=== PATIENT | male | born 1970 | race African-American/Black ===

== ENCOUNTER 2024-11-19 09:16 | Inpatient (IN) | payer OTHER, SELFPAY ==
[2024-11-19] VITALS (8 sets, daily range): BP systolic 165–191; BP diastolic 60–110; PULSE 68–84; RESP 14–19; TEMP 36.4–36.8; O2SAT 99–100; BMI 25.7
--- NOTE | ~2024-11-19 | US_ITS ---
EXAMINATION: US TRIPLEX LOWER EXTREMITY, BILATERAL CLINICAL INFORMATION: Bilateral lower extremity edema and pain COMPARISON: None available. TECHNIQUE: Color-flow triplex imaging with spectral analysis and compression Doppler were performed on the bilateral lower extremities. FINDINGS: Respiratory variation, normal compression and augmented flow are noted throughout the bilateral lower extremities. The visualized common femoral vein, superficial femoral vein, profunda femoral vein, popliteal vein and midcalf left peroneal and posterior tibial venous segments show no evidence of deep venous thrombosis bilaterally. Right peroneal vein is not demonstrated. US/US venous duplex LE BI IMPRESSION: No evidence of deep venous thrombosis involving the bilateral lower extremities. Electronically signed by: Bay Duran MD 11/19/2024 01:24 PM EDT
--- NOTE | ~2024-11-19 | XR_ITS ---
EXAMINATION: XR CHEST CLINICAL INFORMATION: elevated bnp, fatigue COMPARISON: None available. TECHNIQUE: 2 views of the chest were obtained. FINDINGS: No significant abnormality is noted involving the heart, lungs, mediastinum, bony thorax or soft tissues. XR/XR chest 2V IMPRESSION: No acute disease Electronically signed by: Bay Duran MD 11/19/2024 12:58 PM EDT RP
--- NOTE | ~2024-11-19 | US_ITS ---
CLINICAL HISTORY: kidneys and bladder for CKD US kidneys and bladder Comparison: None provided Findings: Right kidney 12.2 cm length. No significant focal abnormality. Left kidney 13.9 cm length. No significant focal abnormality. 4.1 cm upper pole cyst. No bilateral hydronephrosis. Normal bilateral renal echogenicity. Trace ascites in left upper quadrant. The urinary bladder is unremarkable. Prevoid volume 124 mL. Post void volume 25 mL. Bilateral ureteral jets visualized. Impression: Trace left upper quadrant ascites Postvoid residual volume 25 mL No significant renal abnormalities This document has been electronically signed by: Jeison Horner MD on 11/19/2024 22:23:01
--- NOTE | 2024-11-19 09:29 | ED.GENADULT ---
HPI - General Adult General Chief complaint: General Medical Stated complaint: Vomiting 3 weeks Time Seen by Provider: 11/19/24 09:29 Source: patient, RN notes reviewed and old records reviewed Mode of arrival: ambulatory Limitations: no limitations History of Present Illness ED Provider: Flor RAMIREZ narrative: Patient is a 54-year-old male with history of T2DM, HIV, HLD has been off of his medications for the past 4 months due to insurance issue presenting with complaint of fatigue/weakness, leg swelling for the past 3 weeks. Also reports nausea and dry heaving at work yesterday. States that he has been out of all his medications for the past 4 months due to insurance issues. Reports pain behind right knee but denies calf pain. Denies chest or abdominal pain, palpitations, dyspnea. Denies fevers. MD complaint: fatigue, leg swelling Onset (ago): week(s) Related Data Home Medications ?Medication ?Instructions ?Recorded ?Confirmed aspirin 81 mg tablet,delayed 81 mg PO DAILY 11/19/24 release atorvastatin 40 mg tablet 40 mg PO DAILY 11/19/24 brimonidine 0.2 % eye drops drp ophthalmic (eye) 11/19/24 dolutegravir 50 mg-lamivudine 300 1 tab PO DAILY 11/19/24 mg tablet (Dovato) empagliflozin 25 mg tablet 25 mg PO DAILY 11/19/24 (Jardiance) olmesartan 5 mg tablet 5 mg PO DAILY 11/19/24 omeprazole 20 mg capsule,delayed 20 mg PO DAILY 11/19/24 release semaglutide 0.25 mg or 0.5 mg (2 mg subcut 11/19/24 mg/3 mL) subcutaneous pen injector (Ozempic) timolol maleate 0.5 % eye drops drp ophthalmic (eye) 11/19/24 Allergies Allergy/AdvReac Type Severity Reaction Status Date / Time sulfamethoxazole (From Allergy Hives Verified 11/19/24 09:43 Bactrim) trimethoprim (From Bactrim) Allergy Hives Verified 11/19/24 09:43 Review of Systems Review of Systems: As per HPI Yes all other systems are reviewed and are negative Constitutional: Constitutional: Reports as per HPI PMFSH Social History Social History Smoked in Last 30 Days: No Use of substances other than those prescribed or required for medical reasons: Yes Substance Use Type: Marijuana Advance Directives: No Advance Directives Information Provided: No Physical Exam ED Vital Signs: Vital Signs - 24 hr 11/19/24 09:41 11/19/24 10:16 11/19/24 11:02 Temperature 98 F 97.9 F Pulse Rate 84 72 Respiratory Rate 18 19 Blood Pressure 191/108 H 175/98 H 165/99 H Pulse Oximetry 99 99 Oxygen Delivery Method Room Air Room Air BMI result Body Mass Index 25.7 Vital signs have been reviewed and appear to be correct. Blood pressure elevated. Heart rate normal. Respiratory rate normal. Temperature normal. Oxygen saturation normal. Const General: cooperative and no acute distress Orientation/consciousness: oriented to person, oriented to place, oriented to time and patient oriented x3 Limitations: no limitations HENMT Head: Yes normocephalic and Yes atraumatic Ears: external ears normal General nose exam: Normal external nose present Face and sinus: Yes face symmetric Mouth: oropharynx normal and moist mucous membranes Throat: Yes uvula midline Eyes Pupils: Equal, round and reactive pupils present Neck Neck: Yes normal visual inspection and Yes supple Resp Effort & Inspection: normal respiratory effort and able to speak in complete sentences Auscultation: clear to auscultation bilaterally Cardio Rate: regular rate Rhythm: regular rhythm Heart sounds: S1 normal heart sound present and S2 normal heart sound present GI Palpation (GI): Soft to palpation and nontender Auscultation: normoactive bowel sounds General: Yes no CVA tenderness Back/Spine/Pelvis Back: no CVA tenderness Skin General skin exam: elasticity normal and turgor normal Neuro General: oriented to person, oriented to place, oriented to time, patient oriented x3, moves all extremities, no focal motor deficits and CN's II-XI intact bilaterally Cranial nerves: Yes Equal, round and reactive pupils present Cognition (Neuro): normal cognition Extrem General: Yes full ROM, Yes no calf tenderness and Yes pedal edema (3+ pitting pedal edema) Right lower extremity: knee Details: tenderness Location: of the popliteal fossa and normal ROM and foot Details: vascular exam Details: dorsalis pedis pulse present, posterior tibial pulse present and normal capillary refill Left lower extremity: foot Details: vascular exam Details: dorsalis pedis pulse present, posterior tibial pulse present and normal capillary refill Psych Mental Status: mental status grossly normal Affect: normal affect Thought process: Normal thought process present Medications Administered Generic Name Dose Route Start Last Admin Trade Name Freq PRN Reason Stop Dose Admin Heparin Sodium (Porcine) 5,000 unit 11/19/24 13:15 11/19/24 13:32 Heparin Sodium,Porcine 5,000 Unit/Ml Vial SUBCUT Not Given Q12H HENRY Discontinued Medications Generic Name Dose Route Start Last Admin Trade Name Lis PRN Reason Stop Dose Admin Furosemide 20 mg 11/19/24 10:53 11/19/24 11:02 Furosemide 20 Mg/2 Ml Vial IVPUSH 11/19/24 10:54 20 mg ONCE ONE Administration Protocol Acetaminophen 1,000 mg in 100 mls @ 400 mls/hr 11/19/24 11:08 11/19/24 12:29 Ofirmev IV 11/19/24 11:22 Infused ONCE ONE Infusion Medical Decision Making Medical Decision Making [facility] Narrative: Patient is a 54-year-old male with history of T2DM, HIV, HLD has been off of his medications for the past 4 months due to insurance issue presenting with complaint of fatigue/weakness, leg swelling for the past 3 weeks. On exam patient is awake, A+Ox3, VS WNL, afebrile, normal neurological exam without focal deficits, physical exam findings as above. Given reported symptoms and physical exam findings, initial differential includes but is not limited to viral illness, electrolyte abnormality, ALINA, dependent edema. Labs notable for elevated BUN/cr, elevated BNP. Chest x-ray without evidence of pulmonary edema, pneumonia. Bilateral lower extremity ultrasound without evidence of DVT. My interpretation is in agreement with the radiologist's interpretation. Will admit patient for lower extremity edema, elevated BNP. Differential Diagnosis Differential Diagnoses: The differential diagnosis associated with the presentation includes as per [facility] Admission/Observation Consideration of admission/observation: Escalation of care including admission/observation considered Consult Healthcare Provider Management of the patient was discussed with: Hospitalist Lab Data [facility] Lab Attestation statement: I reviewed the patient's lab results. as per [facility] 11/19/24 10:04 11/19/24 10:04 Labs: Lab Results 11/19/24 11/19/24 11/19/24 Range/Units 10:04 10:09 10:20 WBC 10.6 (4.8-10.8) X10*3/uL RBC 3.67 L (4.60-5.80) X10*6/uL Hgb 11.2 L (14.0-18.0) g/dl Hct 33.0 L (42.0-52.0) % MCV 89.9 (80.0-98.0) fL MCH 30.5 (27.0-33.0) pg MCHC 33.9 (31.0-36.0) g/dl RDW 13.8 (11.0-16.0) % Plt Count 198 (160-400) X10*3/uL MPV 11.3 (9.4-12.4) fL Immature Gran % (Auto) 0.7 H (0.0-0.4) % Neut % (Auto) 71.4 (45-73) % Lymph % (Auto) 21.6 (20-40) % Aurora % (Auto) 5.4 (2-11) % Eos % (Auto) 0.7 (0-4) % Baso % (Auto) 0.2 (0-2) % Lymph # (Auto) 2.3 (1.2-4.9) X10*3/uL Aurora # (Auto) 0.6 (0.1-1.2) X10*3/uL Eos # (Auto) 0.1 (0.0-0.4) X10*3/uL Baso # (Auto) 0.0 (0.0-0.2) X10*3/uL Abs Immat Gran (auto) 0.07 H (0.00-0.03) X10*3/uL Absolute Neuts (auto) 7.6 (2.0-8.3) x10*3/uL Absolute Nucleated RBC 0.000 (0.0-0.012) X10*3/uL Nucleated RBC % (auto) 0.0 (0.0-0.2) /100WBC VBG pH 7.32 (7.32-7.43) VBG pCO2 52 mmHg VBG pO2 39 mmHg VBG HCO3 27 H (22-26) mmol/L VBG O2 Saturation 57.0 % VBG Base Excess 1.0 mmol/L Sodium 145 (135-145) mmol/L Potassium 3.5 (3.3-5.1) mmol/L Chloride 114 H (96-108) mmol/L Carbon Dioxide 26 (22-29) mmol/L Anion Gap 9 L (12-20) BUN 23 H (9-16) mg/dL Creatinine 1.55 H (0.5-1.4) mg/dL Estim Creat Clear Calc 56.6 Estimated GFR 47 Random Glucose 228 H (60-115) mg/dL Calcium 7.9 L (8.4-10.2) mg/dL Total Bilirubin 0.3 (0.0-1.0) mg/dL AST 33 (5-37) U/L ALT 13 (0-40) U/L Alkaline Phosphatase 73 (39-117) U/L Troponin I High Sens 12.8 (<3.5-35.0) ng/L NT-Pro-B Natriuret Pep 1004.1 H (<300) pg/mL Total Protein 4.8 L (6.5-8.0) g/dL Albumin 2.1 L (3.5-5.0) g/dL Beta-Hydroxybutyrate 0.15 (0.02-0.27) mmol/L Urine Color Yellow Urine Appearance Cloudy Urine pH 6.0 (5.0-9.0) Ur Specific [place] >= 1.030 H (1.005-1.025) Urine Protein >=1000 (4+) H (Neg-Trace) mg/dL Urine Glucose (UA) 500 H (Negative) mg/dL Urine Ketones Negative (Negative) mg/dL Urine Blood Moderate (2+) H (Negative) Urine Nitrite Negative (Negative) Ur Leukocyte Esterase Negative (Negative) Urine RBC >20 H (0-2) /HPF Urine WBC 0-5 (0-5) /HPF Ur Squamous Epith Cells 0-2 (0-2) /HPF Urine Bacteria None Seen (None Seen) Hyaline Casts 6-10 (0-2) /LPF Granular Casts Present COVID-19 (BOLIVAR) Negative (Negative) COVID-19 Clin Com See Note Influenza Type A (MYAH) Negative (Negative) Influenza Type B (MYAH) Negative (Negative) Influenza A & B Note See Note Independent Interpretation I performed an independent interpretation of an: Plain X-Ray and Ultrasound Interpretation: Chest x-ray without evidence of pulmonary edema, pneumonia. Bilateral lower extremity ultrasound without evidence of DVT. Radiology Impression Discussion of test interpretation with radiology: I have reviewed the radiologist's reading. Radiologist Impression: US/US venous duplex LE BI IMPRESSION: No evidence of deep venous thrombosis involving the bilateral lower extremities. XR/XR chest 2V IMPRESSION: No acute disease External Record Review External record reviewed: Inpatient record, Office record and Outpatient record Discharge Plan Discharge Clinical Impression: Bilateral lower extremity edema, Elevated brain natriuretic peptide (BNP) level Patient Disposition: Admitted As Inpatient
--- NOTE | 2024-11-19 09:55 | ECG_ITS ---
Test Reason : WEAKNESS Blood Pressure : */* mmHG Vent. Rate : 74 BPM Atrial Rate : 74 BPM P-R Int : 122 ms QRS Dur : 94 ms QT Int : 382 ms P-R-T Axes : 42 26 45 degrees QTcB Int : 424 ms Normal sinus rhythm Normal ECG No previous ECGs available Referred By: Rosa Ray Electronically Signed By: LACHELLE POPE
[2024-11-19 10:09] LABS: MANUAL DIFF FLAG NO
[2024-11-19 10:12] LABS: Venous Blood Gas Refer to POC result
[2024-11-19 10:13] LABS: Hematocrit 33.0 % (42.0-52.0); Hemoglobin 11.2 g/dl (14.0-18.0); Imm Gran Abs Auto 0.07 X10*3/uL (0.00-0.03); Imm Gran Pct Auto 0.7 % (0.0-0.4); Lymphocytes Absolute Auto 2.3 X10*3/uL (1.2-4.9); Mean Corpuscular HGB Conc 33.9 g/dl (31.0-36.0); Mean Corpuscular Hemoglobin 30.5 pg (27.0-33.0); Mean Corpuscular Volume 89.9 fL (80.0-98.0); NRBC Abs Auto 0.000 X10*3/uL (0.0-0.012); NRBC Pct Auto 0.0 /100WBC (0.0-0.2); Platelet Count 198 X10*3/uL (160-400); Red Blood Count 3.67 X10*6/uL (4.60-5.80); White Blood Count 10.6 X10*3/uL (4.8-10.8)
[2024-11-19 10:13] LABS: VBG HCO3 27 mmol/L (22-26); VBG O2 % Saturation 57.0 %
--- NOTE | 2024-11-19 10:15 | PC.NURSE ---
Presents to ED from home with 3 weeks of N/V/D, weakness, general malaise, swelling to bilat legs and arms. Reporting generally not feeling well, increasing over past 3 weeks. Has hx of diabetes but has not taken any meds X4 months due to insurance issues. Went to [facility] last night but left due to wait. 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 Poor PO intake. Frequent urination. Pitting edema noted to bilat lower extremities. Denying CP, SOB, ABD pain. A&OX4, ambulatory w/ steady gait.
[2024-11-19 10:28] LABS: Alanine Aminotransferase 13 U/L (0-40); Albumin Level 2.1 g/dL (3.5-5.0); Anion Gap 9 (12-20); Aspartate Amino Transferase 33 U/L (5-37); Blood Urea Nitrogen 23 mg/dL (9-16); Calcium 7.9 mg/dL (8.4-10.2); Carbon Dioxide 26 mmol/L (22-29); Chloride 114 mmol/L (96-108); Creatinine Clr Calc Pharmacy 56.6; Estimated Glomerular Filt Rate 47; Potassium 3.5 mmol/L (3.3-5.1); Sodium 145 mmol/L (135-145); Total Protein 4.8 g/dL (6.5-8.0)
[2024-11-19 10:28] LABS: Appearance Urine Cloudy; Glucose Urine UA 500 mg/dL (Negative); PH 6.0 (5.0-9.0); Specific Gravity - Urine >= 1.030 (1.005-1.025); UMIC TRIGGER UACC YES
[2024-11-19 10:30] LABS: NT Pro B Type Natriuretic Pept 1004.1 pg/mL (<300); Troponin-I High Sensitivity 12.8 ng/L (<3.5-35.0)
[2024-11-19 10:36] LABS: Alkaline Phosphatase 73 U/L (39-117)
[2024-11-19 10:43] LABS: COVID-19 Test Negative (Negative); IDNOW Serial# 152EDE1D; IDNOW Serial# 16C4AD1C; Influenza B2 Negative (Negative)
[2024-11-19] MEDS: Furosemide 20 MG/2 ML VIAL IVPUSH (11:02)
--- OUTSIDE RECORDS SUMMARY | 2024-11-19 12:26 | XMS_ITS | Encounter Summary ---
Author Organization [facility], Address [address] [facility] [address] [place] [address] Phone Care Team Providers Care Web Development Instructor Name Role Phone Elizabeth Wright MD Primary Care Provider [phone] Encounter Details Date Type Department Care Team (Late st Contact Info) Description 10/24/2024 Documentation Only [facility], [address] [place] [address] Sarah Jarvis [address] [place] [address] Social History Tobacco Use Types Packs/Day Years Used Date Smoking Tobacco: Former Cigarettes Sex and Gender Information Value Date Recorded Sex Assigned at Not on file Legal Sex Male 12:10 PM EDT Gender Identity Not on file Sexual Orientation Not on file documented as of this encounter Plan of Treatment Not on file documented as of this encounter Visit Diagnoses Not on filedocumented in this encounter Care Teams Web Development Instructor Relationship Specialty Start Date End Date Elizabeth Wright MD [address] [place] [id number] PCP - General Internal Medicine 06/30/24 documented as of this encounter
--- OUTSIDE RECORDS SUMMARY | 2024-11-19 12:26 | XMS_ITS | Encounter Summary ---
Author Organization [facility] [place], Address [address] [facility] [address] [place] [address] Phone Care Team Providers Care Control Integration Engineer Name Role Phone Elizabeth Wright MD Primary Care Provider Encounter Details Date Type Department Care Team (Late st Contact Info) Description 10/24/2024 Documentation Only [facility], [address] [place] [address] Sarah Jarvis [address] [place] [address] Social History Tobacco Use Types [...] on filedocumented in this encounter Care Teams Control Integration Engineer Relationship Specialty Start Date End Date Elizabeth Wright MD [address] [place] [phone] PCP - General Internal Medicine 06/30/24 documented as of this encounter
--- OUTSIDE RECORDS SUMMARY | 2024-11-19 12:26 | XMS_ITS | Encounter Summary ---
Author Organization [facility] [place], Address [address] [place] [address] Phone Care Team Providers Care Specialty Sales Representative Name Role Phone Elizabeth Wright MD Primary Care Provider Encounter Details Date Type Department Care Team (Late st Contact Info) Description 06/30/2024 Documentation Only [facility], [address] [place] [address] [place], [place] [address] [place] [address] Social History Tobacco Use Types Packs/Day Years Used Date Smoking Tobacco: Never Assessed Sex and Gender Information Value Date Recorded Sex Assigned at Not on file Legal Sex Male 12:10 PM EDT Gender Identity Not on file Sexual Orientation Not on file documented as of this encounter Plan of Treatment Not on file documented as of this encounter Visit Diagnoses Not on filedocumented in this encounter Care Teams Specialty Sales Representative Relationship Specialty Start Date End Date Elizabeth Wright MD [address] [place] [id number] PCP - General Internal Medicine 06/30/24 documented as of this encounter
--- OUTSIDE RECORDS SUMMARY | 2024-11-19 12:26 | XMS_ITS | Encounter Summary ---
Author Organization [facility] [place], Address [address] [facility] [address] [place] [address] Phone Care Team Providers Care Director Cardiology Name Role Phone Elizabeth Wright MD Primary Care Provider Encounter Details Date Type Department Care Team (Late st Contact Info) Description 10/24/2024 Documentation Only [facility], [address] [place] [address] Sarah Jarvis [address] [place] [address] Social History Tobacco Use Types [...] on filedocumented in this encounter Care Teams Director Cardiology Relationship Specialty Start Date End Date Elizabeth Wright MD [address] [place] [id number] PCP - General Internal Medicine 06/30/24 documented as of this encounter
--- OUTSIDE RECORDS SUMMARY | 2024-11-19 12:26 | XMS_ITS | Encounter Summary ---
Author Organization [facility] [place], Address [address] [facility] [address] [place] [address] Phone Care Team Providers Care Principle Software Engineer Name Role Phone Elizabeth Wright MD Primary Care Provider Encounter Details Date Type Department Care Team (Late st Contact Info) Description 10/24/2024 Documentation Only [facility], [address] [place] [place] [address] Sarah Jarvis [address] [place] [address] Social History Tobacco Use Types [...] on filedocumented in this encounter Care Teams Principle Software Engineer Relationship Specialty Start Date End Date Elizabeth Wright MD [address] [place] [phone] PCP - General Internal Medicine 06/30/24 documented as of this encounter
--- OUTSIDE RECORDS SUMMARY | 2024-11-19 12:26 | XMS_ITS | Clinical Summary ---
Author Organization [facility] [place], Address [address] [facility] [address] [place] [address] Phone Care Team Providers Care Contract Analyst Name Role Phone Elizabeth Wright MD Primary Care Provider Allergies Active Allergy Reactions Criticality Noted Date Comments Metformin Diarrhea 10/24/2024 Sulfamethoxazole-Trimethopr im 10/24/2024 Other Reaction(s): fever, chills, weak Medications aspirin (ST ESTELA) 81 MG EC tablet Take 81 mg by mouth 1 (one) time each day Active atorvastatin (LIPITOR) 40 MG tablet Take 40 mg by mouth 1 (one) time each day Active Dolutegravir-la miVUDine (Dovato) 50-300 MG tablet Take 1 tablet by mouth 1 (one) time each day Active Empagliflozin (Jardiance) 25 MG tablet Take 25 mg by mouth 1 (one) time each day in the morning Active nortriptyline (PAMELOR) 10 MG capsule Take 10 mg by mouth every night Active olmesartan (BENICAR) 5 MG tablet Take 5 mg by mouth 1 (one) time each day Active omeprazole OTC (PriLOSEC OTC) 20 MG EC tablet Take 20 mg by mouth 1 (one) time each day Do not crush, chew, or split. Active Active Problems Problem Noted Date Diagnosed Date Chronic kidney disease, stage 2 (mild) Type 2 diabetes mellitus Overview (10/24/2024): with macroalbuminuric diabetic nephropathy, and peripheral neuropathy Nephrotic range proteinuria Lower urinary tract symptoms Hyperlipidemia Edema of lower extremity Cellulitis Encounters Date Type Department Care Team Description 10/24/2024 Documentation Only [facility], [address] [place] [address] Matheus, Sarah 10/24/2024 Documentation Only [facility], [address] [place] [place] [address] Matheus, Sarah 10/24/2024 Documentation Only [facility], [address] [place] [address] Matheus, Sarah 10/24/2024 Documentation Only [facility], [address] [place] [address] Matheus, Sarah 10/24/2024 Documentation Only [facility] [address] [place] [address] Matheus, Sarah 10/24/2024 Documentation Only [facility] [address] [place] [address] Matheus, Sarah 10/24/2024 Documentation Only [facility], [address] [place] [address] Matheus, Sarah from Last 3 Months Immunizations Immunization Administration Dates Next Due Hep A, Unspecified 02/15/2006,07/28/2005 Hep B, Unspecified 11/03/2008, 9,06/25/2008,09/27/2006 ,05/28/2006,02/15/2006 Hepatitis A 09/29/2010 Influenza (IM) Preservative Free 12/21/2020,10/21 Influenza Whole 11/15/2011,10/28/2009,11/03/2008 ,01/02/2007 MMR 12/09/2009 Meningococcal, Unspecified 07/10/2016,03/09/2016 Pfizer SARS-COV-2 12/21/2020,06/22/2020,06/02/19 21 Pneumococcal Conjugate 13-Valent 02/02/2014 Pneumococcal Polysaccharide 12/01/2010, 6 Td, Unspecified 12/29/2004 Social History Tobacco Use Types Packs/Day Years Used Date Smoking Tobacco: Former Cigarettes Sex and Gender Information Value Date Recorded Sex Assigned at Not on file Legal Sex Male 12:10 PM EDT Gender Identity Not on file Sexual Orientation Not on file Plan of Treatment Health Maintenance Due Date Last Done Comments Hepatitis B Vaccine (1 of 3 - 19+ 3-dose series) 1987 11/03/2008, 10/01/2008, 06/25/2008, Additional history exists Colorectal Cancer Screening: Annual FOBT 2017 Colorectal Cancer Screening: Colonoscopy 2017 Colorectal Cancer Screening: Sigmoidoscopy 2017 Pneumococcal Vaccine: 50+ Ye ars (4 of 4 - PCV20 or PCV21) 02/02/2019 02/02/2014, 12/01/2010, 07/28/2005 Influenza Vaccine (#1) 2024 , 11/12/2018, 11/15/2011, Additional history exists Diabetes: Hemoglobin A1C 10/24/2024 Diabetes: Ophthalmology Exam 10/24/2024 Diabetes: Pedal Pulse Checked 10/24/2024 Diabetes: Sensory Foot Exam 10/24/2024 Diabetes: Visual Foot Exam 10/24/2024 Insurance Medicaid [place] Care Teams Contract Analyst Relationship Specialty Start Date End Date Elizabeth Wright MD [address] [place] [phone] PCP - General Internal Medicine 06/30/24
--- OUTSIDE RECORDS SUMMARY | 2024-11-19 12:26 | XMS_ITS | Encounter Summary ---
Author Organization [facility] [place], Address [address] [facility] [address] [place] [address] Phone Care Team Providers Care Powder Operator Name Role Phone Elizabeth Wright MD Primary Care Provider Encounter Details Date Type Department Care Team (Late st Contact Info) Description 10/24/2024 Documentation Only [facility], [address] [place] [address] Sarah Jarvis [address] [place] [address] Social History Tobacco Use Types [...] on filedocumented in this encounter Care Teams Powder Operator Relationship Specialty Start Date End Date Elizabeth Wright MD [address] [place] [id number] PCP - General Internal Medicine 06/30/24 documented as of this encounter
--- OUTSIDE RECORDS SUMMARY | 2024-11-19 12:26 | XMS_ITS | Encounter Summary ---
Author Organization [facility] [place], Address [address] [place] [address] Phone Care Team Providers Care Tooling Manager Name Role Phone Elizabeth Wright MD Primary Care Provider Encounter Details Date Type Department Care Team (Late st Contact Info) Description 06/30/2024 Documentation Only [facility] [place], [address] [place] [address] Karen [place], [place] [address] [place] [address] Social History Tobacco Use Types [...] on filedocumented in this encounter Care Teams Tooling Manager Relationship Specialty Start Date End Date Elizabeth Wright MD [address] [place] [phone] PCP - General Internal Medicine 06/30/24 documented as of this encounter
--- OUTSIDE RECORDS SUMMARY | 2024-11-19 12:26 | XMS_ITS | Encounter Summary ---
Author Organization [facility] [place], Address PO [facility] [address] [place] [address] Phone Care Team Providers Care Equipment Planner Name Role Phone Elizabeth Wright MD Primary Care Provider [phone] Encounter Details Date Type Department Care Team (Late st Contact Info) Description 10/24/2024 Documentation Only [facility] [place], [address] [place] [address] Sarah Jarvis [address] [place] [address] Social History Tobacco Use Types [...] on filedocumented in this encounter Care Teams Equipment Planner Relationship Specialty Start Date End Date Elizabeth Wright MD [address] [place] [phone] PCP - General Internal Medicine 06/30/24 documented as of this encounter
--- OUTSIDE RECORDS SUMMARY | 2024-11-19 12:26 | XMS_ITS | Encounter Summary ---
Author Organization [facility] [place], Address [address] [place] [address] Phone Care Team Providers Care Human Resources Benefits Coordinator Name Role Phone Elizabeth Wright MD Primary Care Provider Encounter Details Date Type Department Care Team (Late st Contact Info) Description 06/30/2024 Documentation Only [facility] [place], [address] [place] [address] [place], [place] [address] [place] [address] Social History Tobacco Use Types [...] on filedocumented in this encounter Care Teams Human Resources Benefits Coordinator Relationship Specialty Start Date End Date Elizabeth Wright MD [address] [place] [address] PCP - General Internal Medicine 06/30/24 documented as of this encounter
--- OUTSIDE RECORDS SUMMARY | 2024-11-19 12:26 | XMS_ITS | Encounter Summary ---
Author Organization [facility], Address [address] [facility] [address] [place] [address] Phone Care Team Providers Care Hoop Coiling Machine Operator Name Role Phone Elizabeth Wright MD Primary Care Provider [phone] Encounter Details Date Type Department Care Team (Late st Contact Info) Description 10/24/2024 Documentation Only [facility], [address] [place] [address] Sarah Jarvis [address] [place] [address] Social History Tobacco Use Types [...] on filedocumented in this encounter Care Teams Hoop Coiling Machine Operator Relationship Specialty Start Date End Date Elizabeth Wright MD [address] [place] [id number] PCP - General Internal Medicine 06/30/24 documented as of this encounter
--- NOTE | 2024-11-19 13:05 | PM.IMHP ---
History of Present Illness Date of Service: 11/19/24 Chief Complaint: Leg swelling 54-year-old man with a history of diabetes mellitus type 2, HIV, hyperlipidemia, proteinuria presented to the ER with complaints of worsening lower extremity edema over the past month. He also reported some nausea and dry heaving at work yesterday. She apparently has been out of all of his medications for the past 4 months due to insurance issues. He reported pitting edema from his thighs all the way down to his feet. He denied any shortness of breath, chest pain. According to the [facility] records he does have a history of proteinuria. In the ER, creatinine 1.55, pro BNP 1004, total protein 4.8, albumin 2.1, heavy protein urea in urinalysis, elevated blood pressure readings. Venous Doppler ultrasound of lower extremities negative, chest x-ray showing no acute. Patient was given a dose of Lasix and Tylenol. He will be admitted for further management and treatment of nephrotic syndrome. Review of Systems Review of Systems: Denies any recent fever chills or decrease in appetite respiratory denies any shortness of breath or cough cardiovascular denied chest pain, reports leg edema gastrointestinal denies any dysphagia abdominal pain nausea vomiting or diarrhea genitourinary denies any dysuria frequency or hematuria musculoskeletal denies any joint pain or swelling neuropsych denies any weakness or seizures all other systems reviewed are negative PENDING SALE TO [facility] Medical History (Updated 11/19/24 @ 16:04 by Caprice Snyder NP) Hypertension Glaucoma H/O proteinuria syndrome Diabetes mellitus type 2, uncomplicated Psoriasis Hyperlipidemia HIV (human immunodeficiency virus infection) Erectile dysfunction Chronic diarrhea Surgical History (Updated 11/19/24 @ 16:04 by Caprice Snyder NP) Right tibial fracture Social History (Updated 11/19/24 @ 16:06 by Caprice Snyder NP) Comment: No alcohol Patient Tobacco Use Status: Never used Tobacco Substance Use Type: Marijuana Meds Allergies Allergy/AdvReac Type Severity Reaction Status Date / Time sulfamethoxazole (From Allergy Hives Verified 11/19/24 09:43 Bactrim) trimethoprim (From Bactrim) Allergy Hives Verified 11/19/24 09:43 Home Medications ?Medication ?Instructions ?Recorded ?Confirmed ?Last Taken ?Type aspirin 81 mg tablet,delayed 81 mg PO DAILY 11/19/24 11/19/24 11/17/24 History release atorvastatin 40 mg tablet 40 mg PO DAILY 11/19/24 11/19/24 11/17/24 History brimonidine 0.2 % eye drops 1 drp ophthalmic (eye) BID 11/19/24 11/19/24 11/17/24 History dolutegravir 50 mg-lamivudine 300 1 tab PO DAILY 11/19/24 11/19/24 11/17/24 History mg tablet (Dovato) empagliflozin 25 mg tablet 25 mg PO DAILY 11/19/24 11/19/24 11/17/24 History (Jardiance) olmesartan 5 mg tablet 5 mg PO DAILY 11/19/24 11/19/24 11/17/24 History omeprazole 20 mg capsule,delayed 20 mg PO DAILY@0630 11/19/24 11/19/24 11/18/24 History release semaglutide 0.25 mg or 0.5 mg (2 5 mg subcut GABRIEL 11/19/24 11/19/24 11/16/24 History mg/3 mL) subcutaneous pen injector (Ozempic) timolol maleate 0.5 % eye drops 1 drp ophthalmic (eye) BID 11/19/24 11/19/24 11/17/24 History Physical Exam Vital Signs and Narrative: Vital Signs: Last Vital Signs Temp 97.9 F 11/19/24 10:16 Pulse 72 11/19/24 10:16 Resp 19 11/19/24 10:16 BP 165/99 H 11/19/24 11:02 Pulse Ox 99 11/19/24 10:16 O2 Del Method Room Air 11/19/24 10:16 BMI result Body Mass Index 25.7 Appearing in no acute distress head is normocephalic atraumatic eyes pupils are PERRLA sclera is anicteric mouth throat mucous membranes are intact and moist neck is supple no lymphadenopathy, no JVD noted lung sounds are clear to auscultation heart regular rate rhythm, clear S1, S2 positive bowel sounds, abdomen is soft, nontender neuro patient is alert x3, no focal deficits Pitting edema from thighs to LE Results Labs 11/19/24 10:04 11/19/24 10:04 Labs: Laboratory Results - last 24 hr 11/19/24 11/19/24 11/19/24 10:04 10:09 10:20 MCV 89.9 MCH 30.5 MCHC 33.9 RDW 13.8 Plt Count 198 MPV 11.3 Immature Gran % (Auto) 0.7 H Neut % (Auto) 71.4 Lymph % (Auto) 21.6 Collin % (Auto) 5.4 Eos % (Auto) 0.7 Baso % (Auto) 0.2 Lymph # (Auto) 2.3 Collin # (Auto) 0.6 Eos # (Auto) 0.1 Baso # (Auto) 0.0 Abs Immat Gran (auto) 0.07 H Absolute Neuts (auto) 7.6 Absolute Nucleated RBC 0.000 Nucleated RBC % (auto) 0.0 VBG pH 7.32 VBG pCO2 52 VBG pO2 39 VBG HCO3 27 H VBG O2 Saturation 57.0 VBG Base Excess 1.0 Anion Gap 9 L Estim Creat Clear Calc 56.6 Estimated GFR 47 Random Glucose 228 H Calcium 7.9 L Total Bilirubin 0.3 AST 33 ALT 13 Alkaline Phosphatase 73 Troponin I High Sens 12.8 NT-Pro-B Natriuret Pep 1004.1 H Total Protein 4.8 L Albumin 2.1 L Beta-Hydroxybutyrate 0.15 Urine Color Yellow Urine Appearance Cloudy Urine pH 6.0 Ur Specific [place] >= 1.030 H Urine Protein >=1000 (4+) H Urine Glucose (UA) 500 H Urine Ketones Negative Urine Blood Moderate (2+) H Urine Nitrite Negative Ur Leukocyte Esterase Negative Urine RBC >20 H Urine WBC 0-5 Ur Squamous Epith Cells 0-2 Urine Bacteria None Seen Hyaline Casts 6-10 Granular Casts Present COVID-19 (BOLIVAR) Negative COVID-19 Clin Com See Note Influenza Type A (MYAH) Negative Influenza Type B (MYAH) Negative Influenza A & B Note See Note Imaging Radiologist's Impressions: Impressions Chest X-Ray 11/19/24 12:49 IMPRESSION: No acute disease Electronically signed by: Bay Duran MD 11/19/2024 12:58 PM EDT Assessment and Plan (1) Bilateral lower extremity edema: Status: Acute Plan 54-year-old man admitted with nephrotic syndrome Nephrotic syndrome Edema noted from thighs to lower extremity Heavy proteinuria, albumin 2.1, total protein 4.8 Nephrology consultation Protein supplement added to diet, high-protein diet Albumin x4 bags IV Lasix 40 mg b.i.d. NATHEN, complements, kappa light chain, protein electrophoresis, lipids ordered ALINA Secondary to nephrotic syndrome Diurese and follow creatinine Diabetes mellitus type 2 Sliding scale, ADA diet HIV Continue Dovato Check CD4, viral load Hypertension Continue olmesartan GERD Continue PPI Glaucoma Continue timolol Hyperlipidemia Continue aspirin and statin Quality Stroke Does the patient have a stroke diagnosis?: No VTE Prior VTE?: No VTE Risk Level:: Medical - moderate - high VTE Device Contraindication: Treatment Not Indicated VTE Drug Contraindication: N/A - Med Ordered
--- NOTE | 2024-11-19 13:20 | PC.NURSE ---
+urine ouput after lasix administration.
--- NOTE | 2024-11-19 15:13 | PHA.MEDREC ---
Addendum entered by Kate Gallo RPh 11/19/24 15:21: reviewed by [facility] Original Note: Pharmacy Consult ? Medication Reconciliation Pharmacy has completed the medication reconciliation. Spoke with pt and he confirmed his medications. Pt not sure how he is taking his eye drops (Brimonidine and Timolol) at this time and said to call [facility] pharmacy; I called [facility] and they confirmed he takes instill 1 drop in each eye BID and he confirmed his Ozempic once a week on Sundays and confirmed he took it this past Sunday.
[2024-11-19] MEDS: 0.9 % Sodium Chloride Flush 3 ML SYRINGE IVFLUSH ×2 (15:50→21:35)
[2024-11-19] MEDS: Albumin Human 25 % 100 ML IV ×2 (15:50→21:33)
[2024-11-19 17:13] LABS: Cholesterol 326 mg/dL (<200); HDL Cholesterol 38 mg/dL (>40); Triglycerides 331 mg/dL (<150)
[2024-11-19] MEDS: Furosemide 40 MG/4 ML VIAL IVPUSH (17:55)
[2024-11-19 18:18] LABS: Glucose, Whole Blood 178 mg/dL (60-115)
[2024-11-19 18:34] LABS: Microalbum/Creatinine Ratio Ur 1294.1 ug/mg cr (<30)
[2024-11-19 19:32] LABS: Total Protein Urine Random > 2000 mg/dL (<12)
[2024-11-19 20:56] LABS: Glucose, Whole Blood 171 mg/dL (60-115)
[2024-11-20] VITALS (10 sets, daily range): BP systolic 160–197; BP diastolic 80–107; PULSE 61–77; RESP 14–20; TEMP 36.4–37.1; O2SAT 99–100
--- NOTE | 2024-11-20 01:08 | PC.NURSE ---
pt refused heparin injection
[2024-11-20] MEDS: Albumin Human 25 % 100 ML IV ×3 (03:36→18:11)
[2024-11-20 07:19] LABS: Hematocrit 27.2 % (42.0-52.0); Hemoglobin 9.3 g/dl (14.0-18.0); Mean Corpuscular HGB Conc 34.2 g/dl (31.0-36.0); Mean Corpuscular Hemoglobin 30.5 pg (27.0-33.0); Mean Corpuscular Volume 89.2 fL (80.0-98.0); NRBC Abs Auto 0.000 X10*3/uL (0.0-0.012); NRBC Pct Auto 0.0 /100WBC (0.0-0.2); Platelet Count 152 X10*3/uL (160-400); Red Blood Count 3.05 X10*6/uL (4.60-5.80); White Blood Count 8.8 X10*3/uL (4.8-10.8)
[2024-11-20 07:23] LABS: Glucose, Whole Blood 142 mg/dL (60-115)
[2024-11-20 07:44] LABS: NT Pro B Type Natriuretic Pept 1304.1 pg/mL (<300)
[2024-11-20 07:47] LABS: Alanine Aminotransferase 9 U/L (0-40); Albumin Level 2.5 g/dL (3.5-5.0); Alkaline Phosphatase 68 U/L (39-117); Anion Gap 9 (12-20); Aspartate Amino Transferase 25 U/L (5-37); Blood Urea Nitrogen 21 mg/dL (9-16); Calcium 7.5 mg/dL (8.4-10.2); Carbon Dioxide 26 mmol/L (22-29); Chloride 113 mmol/L (96-108); Creatinine Clr Calc Pharmacy 61.4; Estimated Glomerular Filt Rate 51; Potassium 2.8 mmol/L (3.3-5.1); Sodium 145 mmol/L (135-145); Total Protein 4.6 g/dL (6.5-8.0)
[2024-11-20 08:18] LABS: EOS Counted 1 CELLS; EOS QC POS YES; EOS Stain Quality OK YES; WBC, Counted 100 CELLS
[2024-11-20] MEDS: timoloL maleate 0.5 % Oph Sol 5 ML DRBTL 1 DROP EYE-BOTH ×2 (08:24→20:31)
[2024-11-20] MEDS: Brimonidine Tartrate 0.2% Oph 5 ML BOTTLE 1 DROP EYE-BOTH ×2 (08:25→20:30)
[2024-11-20] MEDS: Aspirin Enteric Coated 81 MG TABLET.DR PO (08:27)
[2024-11-20] MEDS: Potassium Chloride/H20 10 MEQ/100 ML PIGGYBACK 100 MEQ IV (08:30)
[2024-11-20] MEDS: 0.9 % Sodium Chloride Flush 3 ML SYRINGE IVFLUSH ×2 (08:37→20:31)
[2024-11-20 09:02] LABS: E. coli EAEC Not Detected (Not Detect.); E. coli EPEC Not Detected (Not Detect.); E. coli ETEC Not Detected (Not Detect.); E. coli STEC Not Detected (Not Detect.); Shigella sp./EIEC Not Detected (Not Detect.)
[2024-11-20] MEDS: Potassium Chloride/H20 10 MEQ/100 ML PIGGYBACK 65 MEQ IV ×3 (09:50→15:58)
--- NOTE | 2024-11-20 09:54 | MHC.CM.PN ---
EMR REVIEWED, PT ADMITTED W/CHF, CM MET W/PT WHO REPORTS HE LIVES W/HIS MOTHER WHO HE CARES FOR, IS FULLY INDEP W/ALL CARE, DENIES USE OF DME/SERVICES, PT'S GOAL FOR DC IS HOME NO SERVICES ONCE MEDICALLY CLEARED. PT EDUCATED ON AND DECLINES TO COMPLETE A HCP AT THIS TIME, PT ONLY REMEMBERS FIRST NAME PF PCP WHICH IS CABRERA AT [facility], CM WILL CONTACT CLINIC TO CONFIRM.
[2024-11-20 11:18] LABS: Glucose, Whole Blood 151 mg/dL (60-115)
--- NOTE | 2024-11-20 12:00 | CA_ITS ---
Transthoracic Echocardiogram Patient (Last, First, Middle): Scot Mandujano, Gender: M Date of : 1970 Age: 54 Procedure Date: 11/20/2024 Procedure Type: Transthoracic Echocardiogram [place] [facility] [place]: 180.34 cm Weight: 83.46 kg BSA: 2.04 m2 Heart Rate: bpm BP: 178 / 94 mmHg Manager Development: ZHEN/WILL Referring MD: Graciela Salguero MD Symptoms: anasarca, elev BNP Study Quality: Adequate ECG Rhythm: Sinus Conclusions: - The left ventricular systolic function is normal. The calculated ejection fraction is 69% by biplane method. - No obvious valvular pathology seen on this study. - There is mild dilatation of the ascending aorta measuring 3.90 cm. Findings Left Ventricle Normal left ventricular cavity size. There is normal left ventricular wall thickness. The left ventricular systolic function is normal. The calculated ejection fraction is 69% by biplane method. There is no evidence of regional wall motion abnormalities. Diastolic function is normal for age. Right Ventricle Normal right ventricular cavity size and systolic function. Atria Both atria are normal in size. Aortic Valve There is a normal trileaflet aortic valve. There is no aortic valve stenosis. There is no aortic valve regurgitation. Mitral Valve The mitral valve appears normal. There is trace mitral valve regurgitation. There is no mitral valve stenosis. Pulmonic Valve The pulmonic valve is likely normal. Tricuspid Valve There is mild tricuspid valve regurgitation. There is no evidence of pulmonary hypertension. Great Vessels There is mild dilatation of the ascending aorta measuring 3.90 cm. Venous The inferior vena cava is normal in size and collapses less than 50% with inspiration. Pericardium/Pleural There is no evidence of pericardial effusion. Prior Study Comparison No prior study available for comparison. Recommendations, Care & Conclusions No obvious valvular pathology seen on this study. Measurements 2D Linear Measurements IVSd: 0.87 0.6-0.9/0.6-1.0 cm LVIDd: 5.42 3.9-5.3/4.2-5.9 cm LVIDd Index: 2.66 2.4-3.2/2.2-3.1 cm/m2 LVIDs: 3.64 2.0-3.6 cm LVPWd: 0.87 0.7-1.1 cm LA Diam: 3.20 2.7-3.8/3.0-4.0 cm LAIDs Index: 1.57 1.5-2.3 cm/m2 LV Mass: 215.68 67-162/88-224 g LV Mass Index: 105.72 43-95/49-115 g/m2 LVOT Diam: 2.10 3.0+(-)1.3 cm 2D Systolic Function EF 4C: 66.10 >55% EF 2C: 71.50 >55% EF BiP: 69.40 >55% Mitral Valve MV Pk E: 0.62 MV PK A: 0.50 MV Decel Time: 225.00 E/A: 1.20 E'Lateral: 9.36 E'Medial: 7.94 E/E' Med: 7.80 E/E' Lat: 6.60 PHT: 66.00 MVA PHT: 3.33 Decel Dade: 2.74 Aortic Valve AoV Pk Bucky: 1.09 AoV Mn Bucky: 0.75 AoV VTI: 0.23 AoV Pk Grad: 5.00 Aov Mn Grad: 2.00 JULIETH Cont.VTI: 3.40 LVOT LVOT Pk Bucky: 1.01 LVOT Mn Bucky: 0.59 LVOT VTI: 0.23 LVOT Pk Grad: 4.00 LVOT Mn Grad: 2.00 LVOT Diam: 2.10 LVOT Area: 3.46 Diastolic Function MV Pk E: 0.62 MV Pk A: 0.50 E/A: 1.20 E'Medial: 7.94 E/E' Med: 7.80 E' Laterial: 9.36 E/E' Lat: 6.60 Right Ventricle TAPSE (mm): 23.00 TVS' Bucky: 11.60 Tricuspid Valve TR Pk Bucky: 2.23 TR Pk Grad: 20.00 RA Press: 8.00 RVSP: 28.00 Great Vessels Aorta Sinus of Valsalva: 3.40 2.0-3.5 cm Ao Asc: 3.90 2.1-3.4 cm Pulmonary Veins Pulm Vein S/D 1.30 Pulmonary Valve PV Pk Bucky: 0.76 Peak PV Grad: 2.00 Updated in Other Vendor System with Status of Final Oliverio Bhandari MD electronically signed on 11/20/2024 3:51:55 PM with status of Final
--- NOTE | 2024-11-20 12:44 | PM.CNNEP ---
History of Present Illness Reason for Consult Consult date: 11/20/24 Chief Complaint Chief complaint: CHF History of Present Illness Narrative: 54 y/o male with DMII, HIV, HLD, proteinuria. 11/19 came into the hospital with ongoing LE edema x1 month, nausea and vomiting, diarrhea. Patient reports he ran out of medications over a month ago due to lapse in health insurance, fortunately he now has health insurance again. significant proteinuria, +microscopic hematuria, low serum albumin of 2.1, triglycerides>300, edema in upper and lower extremities. Creatinine 1.55 on arrival, 1.43 today. No previous baseline labs available. renal imaging without hydronephrosis/obstruction. patient denies shortness of breath, chest pain, urinary symptoms, other new symptoms/concerns. Review of Systems Review of Systems Yes all other systems are reviewed and are negative [facility] Past Medical History Medical History (Updated 11/20/24 @ 12:55 by Shawnee Bui, DNP, GRINDING MACHINE TENDER-BC) Hypertension Glaucoma H/O proteinuria syndrome Diabetes mellitus type 2, uncomplicated Psoriasis Hyperlipidemia HIV (human immunodeficiency virus infection) Erectile dysfunction Chronic diarrhea Surgical History Surgical History (Updated 11/19/24 @ 16:04 by Caprice Snyder NP) Right tibial fracture Social History Social History (Updated 11/19/24 @ 16:06 by Caprice Snyder NP) Household Members: Other Household Members Other:: mother Housing: Apartment Do you presently have visiting nurse or other home services: No Comment: No alcohol Patient Tobacco Use Status: Former Tobacco user Tobacco use type: Cigarette Smoked in Last 30 Days: No e-Cigarette/Vaping Use: Never Used Use of substances other than those prescribed or required for medical reasons: Yes Substance Use Type: Marijuana Currently Displaying Signs/Symptoms of Drug Intoxication Withdrawal: No Have you been hit, kicked, punched, or otherwise hurt by someone within the past year? If so, by whom?: No Do you feel safe in your current relationship?: Yes Is there a partner from a previous relationship who is making you feel unsafe now?: No Are you made to feel afraid or neglected: No Advance Directives: No Advance Directives Information Provided: No Recently lost weight without trying: No Nutrition Risks: No Nutritional Risk Poor oral hygiene: No service: No Meds Allergies Allergy/AdvReac Type Severity Reaction Status Date / Time sulfamethoxazole (From Allergy Hives Verified 11/19/24 09:43 Bactrim) trimethoprim (From Bactrim) Allergy Hives Verified 11/19/24 09:43 Active Medications: Current Medications Acetaminophen (Acetaminophen 325 Mg Tablet) 650 mg PO Q6H PRN PRN Reason: Pain, Mild 1-3,fever,headache Last Admin: 11/20/24 11:35 Dose: 650 mg Amlodipine Besylate (Amlodipine Besylate 2.5 Mg Tablet) 7.5 mg PO BEDTIME [facility]; Protocol Last Admin: 11/20/24 00:16 Dose: 7.5 mg Aspirin (Aspirin Enteric Coated 81 Mg Tablet.Dr) 81 mg PO DAILY [facility] Last Admin: 11/20/24 08:27 Dose: 81 mg Atorvastatin Calcium (Atorvastatin Calcium 40 Mg Tablet) 40 mg PO DAILY [facility] Last Admin: 11/20/24 08:27 Dose: 40 mg Brimonidine Tartrate (Brimonidine Tartrate 0.2% Oph 5 Ml Bottle) 1 drop EYE-BOTH BID [facility] Last Admin: 11/20/24 08:25 Dose: 1 drop Calcium Carbonate (Calcium Carbonate 750 Mg Tab.Chew) 750 mg PO Q4H PRN PRN Reason: Heartburn Dextrose (Dextrose 50 % 25 Gm/50 Ml Syringe) 25 gm IVPUSH Q15M PRN; Protocol PRN Reason: per Hypoglycemia Standing Ord. Dextrose (Dextrose 50 % 25 Gm/50 Ml Syringe) 25 gm IVPUSH Q15M PRN; Protocol PRN Reason: per Hypoglycemia Standing Ord. Dolutegravir Sodium (Dolutegravir Sodium 50 Mg Tablet) 50 mg PO DAILY [facility] Last Admin: 11/20/24 08:37 Dose: 50 mg Empagliflozin (Empagliflozin 25 Mg Tablet) 25 mg PO DAILY [facility] Last Admin: 11/20/24 08:27 Dose: 25 mg Furosemide (Furosemide 40 Mg/4 Ml Vial) 40 mg IVPUSH BID@0900,1800 [facility]; Protocol Last Admin: 11/20/24 09:09 Dose: Not Given Glucose (Glucose Gel 15 Gm Gel..Gram.) 15 gm PO Q15M PRN; Protocol PRN Reason: per Hypoglycemia Standing Ord. Glucose (Glucose Gel 15 Gm Gel..Gram.) 15 gm PO Q15M PRN; Protocol PRN Reason: per Hypoglycemia Standing Ord. Heparin Sodium (Porcine) (Heparin Sodium,Porcine 5,000 Unit/Ml Vial) 5,000 unit SUBCUT Q12H [facility] Last Admin: 11/20/24 01:20 Dose: Not Given Insulin Human Lispro (Insulin Lispro 100 Unit/Ml 3 Ml Vial) 0 unit SUBCUT QIDACHS [facility]; Protocol Last Admin: 11/20/24 11:36 Dose: 2 unit Insulin Human Lispro (Insulin Lispro 100 Unit/Ml 3 Ml Vial) 0 unit SUBCUT QIDACHS [facility]; Protocol Last Admin: 11/20/24 12:41 Dose: Not Given Lamivudine (Lamivudine 150 Mg Tablet) 300 mg PO DAILY [facility] Last Admin: 11/20/24 08:26 Dose: 300 mg Magnesium Hydroxide (Milk Of Magnesia 30 Ml Oral.Susp) 30 ml PO DAILY PRN PRN Reason: Constipation Melatonin (Melatonin 3 Mg Tablet) 6 mg PO BEDTIME PRN PRN Reason: Insomnia Omeprazole (Omeprazole 20 Mg Capsule.Dr) 20 mg PO DAILY@0630 [facility] Last Admin: 11/20/24 05:56 Dose: 20 mg Ondansetron HCl (Ondansetron Hcl 4 Mg/2 Ml Vial) 4 mg IVPUSH Q8H PRN PRN Reason: Nausea and Vomiting Last Admin: 11/20/24 08:36 Dose: 4 mg Sodium Chloride (0.9 % Sodium Chloride Flush 3 Ml Syringe) 3 ml IVFLUSH QSHIFT [facility] Last Admin: 11/20/24 08:37 Dose: 3 ml Timolol Maleate (Timolol Maleate 0.5 % Oph Fina 5 Ml Drbtl) 1 drop EYE-BOTH BID [facility] Last Admin: 11/20/24 08:24 Dose: 1 drop Triamterene/Hydrochlorothiazide (Triamterene/Hctz 75/50 Tablet) 1 tab PO DAILY [facility]; Protocol Home Medications ?Medication ?Instructions ?Recorded ?Confirmed ?Last Taken ?Type aspirin 81 mg tablet,delayed 81 mg PO DAILY 11/19/24 11/19/24 11/17/24 History release atorvastatin 40 mg tablet 40 mg PO DAILY 11/19/24 11/19/24 11/17/24 History brimonidine 0.2 % eye drops 1 drp ophthalmic (eye) BID 11/19/24 11/19/24 11/17/24 History dolutegravir 50 mg-lamivudine 300 1 tab PO DAILY 11/19/24 11/19/24 11/17/24 History mg tablet (Dovato) empagliflozin 25 mg tablet 25 mg PO DAILY 11/19/24 11/19/24 11/17/24 History (Jardiance) olmesartan 5 mg tablet 5 mg PO DAILY 11/19/24 11/19/24 11/17/24 History omeprazole 20 mg capsule,delayed 20 mg PO DAILY@0630 11/19/24 11/19/24 11/18/24 History release semaglutide 0.25 mg or 0.5 mg (2 5 mg subcut GABRIEL 11/19/24 11/19/24 11/16/24 History mg/3 mL) subcutaneous pen injector (Ozempic) timolol maleate 0.5 % eye drops 1 drp ophthalmic (eye) BID 11/19/24 11/19/24 11/17/24 History Physical Exam Vital Signs: Last Vital Signs Temp 98.3 F 11/20/24 12:23 Pulse 61 11/20/24 12:23 Resp 18 11/20/24 12:23 BP 178/94 H 11/20/24 12:23 Pulse Ox 100 11/20/24 11:16 O2 Del Method Room Air 11/20/24 11:16 BMI result Body Mass Index 25.7 Const General: no acute distress, alert and awake Resp Effort & Inspection: normal respiratory effort and able to speak in complete sentences Auscultation: clear to auscultation bilaterally Cardio Rate: regular rate Rhythm: regular rhythm Heart sounds: S1 normal heart sound present and S2 normal heart sound present Skin Rashes: no rashes Extrem General: Yes edema (upper and lower extremity edema) Results Lab Results 11/20/24 07:00 11/20/24 07:00 Lab results: Chemistry 11/19/24 11/20/24 10:04 07:00 Sodium 145 145 Potassium 3.5 2.8 L* Carbon Dioxide 26 26 BUN 23 H 21 H Creatinine 1.55 H 1.43 H Calcium 7.9 L 7.5 L Hematology 11/19/24 11/20/24 10:04 07:00 WBC 10.6 8.8 Hgb 11.2 L 9.3 L Plt Count 198 152 L Urinalysis 11/19/24 10:20 Urine Color Yellow Urine Appearance Cloudy Urine pH 6.0 Ur Specific [place] >= 1.030 H Urine Protein >=1000 (4+) H Urine Glucose (UA) 500 H Urine Ketones Negative Urine Blood Moderate (2+) H Urine Nitrite Negative Ur Leukocyte Esterase Negative Urine RBC >20 H Urine WBC 0-5 Ur Squamous Epith Cells 0-2 Hyaline Casts 6-10 Urine Studies 11/19/24 10:20 Urine Creatinine 154.54 Assessment and Plan (1) Proteinuria: Status: Acute (2) ALINA (acute kidney injury): Status: Acute (3) Nephrotic syndrome: Status: Acute Plan Patient with significant proteinuria, nephrotic syndrome, possible ALINA vs CKD (unknown baseline renal function). recommend albumin 25grams 3x daily followed by 40mg lasix IVP TID following each albumin infusion. blood pressures suboptimal- fluid overload likely contributing, diuresis as above. patient will need a renal biopsy given significant proteinuria, hematuria- will reach out to IR for outpatient biopsy next week. recommend daily electrolyte and renal function studies recommend daily weights, close I&O monitoring avoid nephrotoxins and precipitous drops in blood pressure Discussed with Dr Huerta. Procedures Date of Service Date of Service: 11/20/24
[2024-11-20] MEDS: Triamterene/HCTZ 75/50 TABLET 1 TAB PO (14:40)
[2024-11-20 15:29] LABS: HIV RNA PCR Qn Copies 2050 copies/mL (NOT DETECTED); HIV RNA PCR Qn Log Copies 3.31 (NOT DETECTED)
[2024-11-20] MEDS: Furosemide 40 MG/4 ML VIAL IVPUSH ×2 (15:56→22:21)
[2024-11-20 16:09] LABS: Anion Gap 6 (12-20); Blood Urea Nitrogen 18 mg/dL (9-16); Calcium 7.5 mg/dL (8.4-10.2); Carbon Dioxide 29 mmol/L (22-29); Chloride 114 mmol/L (96-108); Creatinine Clr Calc Pharmacy 60.1; Estimated Glomerular Filt Rate 50; Potassium 3.3 mmol/L (3.3-5.1); Sodium 146 mmol/L (135-145)
[2024-11-20 16:20] LABS: Glucose, Whole Blood 146 mg/dL (60-115)
--- NOTE | 2024-11-20 16:20 | P.PNIM_ITS ---
Subjective Subjective Date of Service: 11/20/24 Interval History: Reports feeling better.; Reports swelling has improved - remains overaloded with significant LE swelling; but better notably from yesterday. No palpiations, chest pain, dyspnoea, diaphoresis. No fevers, chills or rigors. Review of Systems Review of Systems: Yes all other systems are reviewed and are negative Physical Exam 2 Exam: Exam: General: A&O x3, oriented to time place person and situation, comfortable, no pain Cardiac: S1, S2 auscultated with no S3/4, no MRG. Well perfused. Respiratory: Normal breath sounds auscultated throughout all lung zones, without wheezing, rales. Normal rate. GI/ : No abdominal pain on palpation, no masses or distentions. MSK: Normal ambulation without pain at bony prominences or musculature. Significant lower extremity edema with 4+ pitting edema to the mid shins bilaterally. Evidence of lipodermatosclerosis noted to the lower extremities. Neurological: Normal neurological examination on overview, without obvious CN II-XII abnormalities. Vital Signs: Vital Signs: Last Vital Signs Temp 97.5 F 11/20/24 15:51 Pulse 65 11/20/24 15:51 Resp 14 11/20/24 15:51 BP 178/94 H 11/20/24 15:51 Pulse Ox 99 11/20/24 15:51 O2 Del Method Room Air 11/20/24 15:51 BMI result Body Mass Index 25.7 Objective Data Active Medications Acetaminophen (Acetaminophen 325 Mg Tablet) 650 mg PO Q6H PRN PRN Reason: Pain, Mild 1-3,fever,headache Last Admin: 11/20/24 11:35 Dose: 650 mg Documented By: ANA Amlodipine Besylate (Amlodipine Besylate 2.5 Mg Tablet) 7.5 mg PO BEDTIME [facility]; Protocol Last Admin: 11/20/24 00:16 Dose: 7.5 mg Documented By: GHULAM Aspirin (Aspirin Enteric Coated 81 Mg Tablet.) 81 mg PO DAILY [facility] Last Admin: 11/20/24 08:27 Dose: 81 mg Documented By: ANA Atorvastatin Calcium (Atorvastatin Calcium 40 Mg Tablet) 40 mg PO DAILY [facility] Last Admin: 11/20/24 08:27 Dose: 40 mg Documented By: ANA Brimonidine Tartrate (Brimonidine Tartrate 0.2% Oph 5 Ml Bottle) 1 drop EYE- BOTH BID [facility] Last Admin: 11/20/24 08:25 Dose: 1 drop Documented By: ANA Calcium Carbonate (Calcium Carbonate 750 Mg Tab.Chew) 750 mg PO Q4H PRN PRN Reason: Heartburn Dextrose (Dextrose 50 % 25 Gm/50 Ml Syringe) 25 gm IVPUSH Q15M PRN; Protocol PRN Reason: per Hypoglycemia Standing Ord. Dextrose (Dextrose 50 % 25 Gm/50 Ml Syringe) 25 gm IVPUSH Q15M PRN; Protocol PRN Reason: per Hypoglycemia Standing Ord. Dolutegravir Sodium (Dolutegravir Sodium 50 Mg Tablet) 50 mg PO DAILY [facility] Last Admin: 11/20/24 08:37 Dose: 50 mg Documented By: ANA Empagliflozin (Empagliflozin 25 Mg Tablet) 25 mg PO DAILY [facility] Last Admin: 11/20/24 08:27 Dose: 25 mg Documented By: ANA Furosemide (Furosemide 40 Mg/4 Ml Vial) 40 mg IVPUSH TID@0600,1400,2200 [facility]; Protocol Last Admin: 11/20/24 15:56 Dose: 40 mg Documented By: ANA Glucose (Glucose Gel 15 Gm Gel..Gram.) 15 gm PO Q15M PRN; Protocol PRN Reason: per Hypoglycemia Standing Ord. Glucose (Glucose Gel 15 Gm Gel..Gram.) 15 gm PO Q15M PRN; Protocol PRN Reason: per Hypoglycemia Standing Ord. Heparin Sodium (Porcine) (Heparin Sodium,Porcine 5,000 Unit/Ml Vial) 5,000 unit SUBCUT Q12H [facility] Last Admin: 11/20/24 15:56 Dose: 5,000 unit Documented By: ANA Albumin Human (Kedbumin 25 %) 100 mls @ 100 mls/hr IV Q8H [facility] Stop: 11/22/24 12:59 Insulin Human Lispro (Insulin Lispro 100 Unit/Ml 3 Ml Vial) 0 unit SUBCUT QIDAS [facility]; Protocol Last Admin: 11/20/24 11:36 Dose: 2 unit Documented By: ANA Insulin Human Lispro (Insulin Lispro 100 Unit/Ml 3 Ml Vial) 0 unit SUBCUT QIDAS [facility]; Protocol Last Admin: 11/20/24 12:41 Dose: Not Given Documented By: ANA Non-Admin Reason: Duplicate Order Lamivudine (Lamivudine 150 Mg Tablet) 300 mg PO DAILY [facility] Last Admin: 11/20/24 08:26 Dose: 300 mg Documented By: ANA Magnesium Hydroxide (Milk Of Magnesia 30 Ml Oral.Susp) 30 ml PO DAILY PRN PRN Reason: Constipation Melatonin (Melatonin 3 Mg Tablet) 6 mg PO BEDTIME PRN PRN Reason: Insomnia Omeprazole (Omeprazole 20 Mg Capsule.Dr) 20 mg PO DAILY@0630 [facility] Last Admin: 11/20/24 05:56 Dose: 20 mg Documented By: GHULAM Ondansetron HCl (Ondansetron Hcl 4 Mg/2 Ml Vial) 4 mg IVPUSH Q8H PRN PRN Reason: Nausea and Vomiting Last Admin: 11/20/24 08:36 Dose: 4 mg Documented By: ANA Sodium Chloride (0.9 % Sodium Chloride Flush 3 Ml Syringe) 3 ml IVFLUSH QSHIFT [facility] Last Admin: 11/20/24 08:37 Dose: 3 ml Documented By: ANA Timolol Maleate (Timolol Maleate 0.5 % Oph Fina 5 Ml Drbtl) 1 drop EYE-BOTH BID [facility] Last Admin: 11/20/24 08:24 Dose: 1 drop Documented By: ANA Triamterene/Hydrochlorothiazide (Triamterene/Hctz 75/50 Tablet) 1 tab PO DAILY [facility]; Protocol Last Admin: 11/20/24 14:40 Dose: 1 tab Documented By: ANA Labs 11/20/24 07:00 11/20/24 15:48 Labs: Laboratory Results - last 24 hr 11/19/24 11/19/24 11/19/24 10:20 16:44 18:10 MCV MCH MCHC RDW Plt Count MPV Absolute Nucleated RBC Nucleated RBC % (auto) Anion Gap Estim Creat Clear Calc Estimated GFR POC Glucose 178 H Random Glucose Calcium Total Bilirubin AST ALT Alkaline Phosphatase NT-Pro-B Natriuret Pep Total Protein Albumin Triglycerides 331 H Cholesterol 326 H LDL Cholesterol, Calc 222 H HDL Cholesterol 38 L Urine Eosinophils % 1.0 U Random Total Protein > 2000 H Urine Creatinine 154.54 Urine Microalbumin > 2000.0 Microalb/Creat Ratio 1294.1 H Stl C. cayetanensis PCR Stool Rotavirus A PCR Stl Adenov F 40/41 PCR Stool Astrovirus (PCR) Stool Campylobacter PCR Stool Cryptosporidium PCR Stl Sh Tox Pr E STEC PCR Stool E coli O157 PCR Stl Enterotoxigenic E PCR Stool EPEC (PCR) Stool EAEC (PCR) Stl E. histolytica PCR Stool Giardia Lamblia PCR Stl P. shigelloides PCR Stool Salmonella PCR Stool Sapovirus (PCR) Stl Shigella/EIEC PCR St Y.enterocolitica PCR Stool Vibrio (PCR) Stl Vibrio cholerae PCR Stl Norovirus GI/GII PCR Complement C3 94 Complement C4 20 HIV-1 RNA copies/mL 2050 H HIV-1 RNA logcopies/mL 3.31 H 11/19/24 11/20/24 11/20/24 20:51 01:01 07:00 MCV 89.2 MCH 30.5 MCHC 34.2 RDW 13.6 Plt Count 152 L MPV 11.5 Absolute Nucleated RBC 0.000 Nucleated RBC % (auto) 0.0 Anion Gap 9 L Estim Creat Clear Calc 61.4 Estimated GFR 51 POC Glucose 171 H Random Glucose 161 H Calcium 7.5 L Total Bilirubin 0.5 AST 25 ALT 9 Alkaline Phosphatase 68 NT-Pro-B Natriuret Pep 1304.1 H Total Protein 4.6 L Albumin 2.5 L Triglycerides Cholesterol LDL Cholesterol, Calc HDL Cholesterol Urine Eosinophils % U Random Total Protein Urine Creatinine Urine Microalbumin Microalb/Creat Ratio Stl C. cayetanensis PCR Not Detected Stool Rotavirus A PCR Not Detected Stl Adenov F 40/41 PCR Not Detected Stool Astrovirus (PCR) Not Detected Stool Campylobacter PCR Not Detected Stool Cryptosporidium PCR Not Detected Stl Sh Tox Pr E STEC PCR Not Detected Stool E coli O157 PCR Not applicable Stl Enterotoxigenic E PCR Not Detected Stool EPEC (PCR) Not Detected Stool EAEC (PCR) Not Detected Stl E. histolytica PCR Not Detected Stool Giardia Lamblia PCR Not Detected Stl P. shigelloides PCR Not Detected Stool Salmonella PCR Not Detected Stool Sapovirus (PCR) Not Detected Stl Shigella/EIEC PCR Not Detected St Y.enterocolitica PCR Not Detected Stool Vibrio (PCR) Not Detected Stl Vibrio cholerae PCR Not Detected Stl Norovirus GI/GII PCR Not Detected Complement C3 Complement C4 HIV-1 RNA copies/mL HIV-1 RNA logcopies/mL 11/20/24 11/20/24 11/20/24 07:19 11:15 15:48 MCV MCH MCHC RDW Plt Count MPV Absolute Nucleated RBC Nucleated RBC % (auto) Anion Gap 6 L Estim Creat Clear Calc 60.1 Estimated GFR 50 POC Glucose 142 H 151 H Random Glucose 153 H Calcium 7.5 L Total Bilirubin AST ALT Alkaline Phosphatase NT-Pro-B Natriuret Pep Total Protein Albumin Triglycerides Cholesterol LDL Cholesterol, Calc HDL Cholesterol Urine Eosinophils % U Random Total Protein Urine Creatinine Urine Microalbumin Microalb/Creat Ratio Stl C. cayetanensis PCR Stool Rotavirus A PCR Stl Adenov F 40/41 PCR Stool Astrovirus (PCR) Stool Campylobacter PCR Stool Cryptosporidium PCR Stl Sh Tox Pr E STEC PCR Stool E coli O157 PCR Stl Enterotoxigenic E PCR Stool EPEC (PCR) Stool EAEC (PCR) Stl E. histolytica PCR Stool Giardia Lamblia PCR Stl P. shigelloides PCR Stool Salmonella PCR Stool Sapovirus (PCR) Stl Shigella/EIEC PCR St Y.enterocolitica PCR Stool Vibrio (PCR) Stl Vibrio cholerae PCR Stl Norovirus GI/GII PCR Complement C3 Complement C4 HIV-1 RNA copies/mL HIV-1 RNA logcopies/mL Assessment and Plan (1) ALINA (acute kidney injury): Status: Acute (2) Nephrotic syndrome: Status: Acute (3) Proteinuria: Status: Acute (4) Bilateral lower extremity edema: Status: Acute (5) HIV (human immunodeficiency virus infection): Status: Acute (6) Chronic diarrhea: Status: Acute (7) Elevated brain natriuretic peptide (BNP) level: Status: Acute (8) Hypertension: Status: Acute (9) Hyperlipidemia: Status: Acute (10) Diabetes mellitus type 2, uncomplicated: Status: Acute Plan 54-year-old man with a history of diabetes mellitus type 2, HIV, hyperlipidemia, proteinuria presented to the ER with complaints of worsening lower extremity edema over the past month, admitted with nephrotic syndrome; notable for ALINA, anasarca, hypertension. Nephrotic syndrome Anasarca Prerenal/intrarenal ALINA HTN Edema noted from thighs to lower extremity Heavy proteinuria, albumin 2.1, total protein 4.8 Nephrology consultation Protein supplement added to diet, high-protein diet Albumin 25 g. IV for 3 days IV furosemide post albumin infusions NATHEN, complements, kappa light chain, protein electrophoresis, lipids ordered Will likely require inpatient biopsy Since the patient has not taking his HIV medications, concerns are raised for HIV related GN/ RPGN ALINA Secondary to nephrotic syndrome Diurese and follow creatinine Will likely require renal biopsy. Diabetes mellitus type 2 Sliding scale, ADA diet HIV Continue Dovato Check CD4, viral load Hypertension Continue olmesartan GERD Continue PPI Glaucoma Continue timolol Hyperlipidemia Continue aspirin and statin QUALITY METRICS - VTE: Heparin 5000 t.i.d. - CODE STATUS: Full code - DIET: Renal Total time managing care of this patient today: 45 minutes. Quality Stroke Does the patient have a stroke diagnosis?: No VTE Prior VTE?: No VTE Risk Level:: Medical - moderate - high VTE Device Contraindication: Treatment Not Indicated VTE Drug Contraindication: N/A - Med Ordered
[2024-11-20 20:19] LABS: Glucose, Whole Blood 141 mg/dL (60-115)
[2024-11-20] MEDS: Butalb/Acetamin/Caff 50/325/40 TABLET 1 TAB PO (21:25)
[2024-11-20 22:18] LABS: Prot Elec - Albumin 2.3 g/dL (3.8-4.8); Prot Elec - Alpha1 0.2 g/dL (0.2-0.3); Prot Elec - Alpha2 1.0 g/dL (0.5-0.9); Prot Elec - Beta 1 0.2 g/dL (0.4-0.6); Prot Elec - Beta 2 0.3 g/dL (0.2-0.5); Prot Elec - Gamma 0.5 g/dL (0.8-1.7); Prot Elec - Total Protein 4.5 g/dL (6.1-8.1)
[2024-11-21] MEDS: Albumin Human 25 % 100 ML IV ×2 (01:59→10:38)
[2024-11-21 04:00] VITALS: BP 172/98; PULSE 61; RESP 20; TEMP 36.8; O2SAT 99
[2024-11-21] MEDS: Furosemide 40 MG/4 ML VIAL IVPUSH ×2 (06:23→12:31)
[2024-11-21 07:46] LABS: Glucose, Whole Blood 137 mg/dL (60-115)
[2024-11-21 07:50] VITALS: BP 166/91; PULSE 59; RESP 17; TEMP 36.8; O2SAT 100
[2024-11-21] MEDS: Triamterene/HCTZ 75/50 TABLET 1 TAB PO (09:02)
[2024-11-21] MEDS: Aspirin Enteric Coated 81 MG TABLET.DR PO (09:03)
[2024-11-21] MEDS: 0.9 % Sodium Chloride Flush 3 ML SYRINGE IVFLUSH (09:04)
[2024-11-21] MEDS: Brimonidine Tartrate 0.2% Oph 5 ML BOTTLE 1 DROP EYE-BOTH (10:27)
[2024-11-21] MEDS: timoloL maleate 0.5 % Oph Sol 5 ML DRBTL 1 DROP EYE-BOTH (10:27)
--- NOTE | 2024-11-21 10:30 | P.PNNP_ITS ---
Subjective Subjective Date of Service: 11/21/24 Interval history: Patient here with nephrotic syndrome, ?ALINA vs CKD. UOP 475/last 24 hours- patient is voiding independently, not all may have been recorded. patient states he is feeling much better, feels his swelling has improved significantly and hoping to go home today. Physical Exam 2 Vital Signs: Vital Signs: Last Vital Signs Temp 98.2 F 11/21/24 07:50 Pulse 59 11/21/24 07:50 Resp 17 11/21/24 07:50 BP 166/91 H 11/21/24 07:50 Pulse Ox 100 11/21/24 07:50 O2 Del Method Room Air 11/21/24 07:50 BMI result Body Mass Index 25.7 Const: General: no acute distress, alert and awake Resp: Effort & Inspection: normal respiratory effort and able to speak in complete sentences Auscultation: clear to auscultation bilaterally Cardio: Rate: regular rate Rhythm: regular rhythm Heart sounds: S1 normal heart sound present and S2 normal heart sound present Skin: Rashes: no rashes Extrem: General: Yes edema (upper and lower extremity edema- mild, improved since yesterday.) Objective Data Labs 11/20/24 07:00 11/20/24 15:48 Labs: Laboratory Results - last 24 hr 11/19/24 11/19/24 11/20/24 16:44 16:45 11:15 Hold Purple Top Sodium Potassium Chloride Carbon Dioxide Anion Gap BUN Creatinine Estim Creat Clear Calc Estimated GFR POC Glucose 151 H Random Glucose Calcium Total Protein (PEP) 4.5 L Albumin (PEP) 2.3 L Bhqaq-4-Getajzpaq 0.2 Mmbrr-4-Ofdanuetf 1.0 H Hccu-7-Wxfvqstn 0.2 L Jycn-7-Kprxkjna 0.3 Gamma Globulins 0.5 L Abnorm Protein Band 1 TNP Abnorm Protein Band 2 TNP Abnorm Protein Band 3 TNP PEP Interpretation SEE NOTE Complement C3 94 Complement C4 20 HIV-1 RNA copies/mL 2050 H HIV-1 RNA logcopies/mL 3.31 H 11/20/24 11/20/24 11/20/24 15:48 16:17 20:15 Hold Purple Top Sodium 146 H Potassium 3.3 Chloride 114 H Carbon Dioxide 29 Anion Gap 6 L BUN 18 H Creatinine 1.46 H Estim Creat Clear Calc 60.1 Estimated GFR 50 POC Glucose 146 H 141 H Random Glucose 153 H Calcium 7.5 L Total Protein (PEP) Albumin (PEP) Vvkbr-6-Olfhmgkii Izoxk-4-Uzqnjgxde Pvsg-6-Qeqznqyq Wyou-8-Kwiouptt Gamma Globulins Abnorm Protein Band 1 Abnorm Protein Band 2 Abnorm Protein Band 3 PEP Interpretation Complement C3 Complement C4 HIV-1 RNA copies/mL HIV-1 RNA logcopies/mL 11/21/24 11/21/24 07:40 10:15 Hold Purple Top SEE NOTE Sodium Potassium Chloride Carbon Dioxide Anion Gap BUN Creatinine Estim Creat Clear Calc Estimated GFR POC Glucose 137 H Random Glucose Calcium Total Protein (PEP) Albumin (PEP) Smfny-2-Gwuxfxxoe Okmwu-9-Yiqfjvjsr Qrao-2-Eozrumhz Vtcx-4-Bokzejlj Gamma Globulins Abnorm Protein Band 1 Abnorm Protein Band 2 Abnorm Protein Band 3 PEP Interpretation Complement C3 Complement C4 HIV-1 RNA copies/mL HIV-1 RNA logcopies/mL Procedures Date of Service Date of Service: 11/21/24 Assessment & Plan Assessment and plan (1) Proteinuria: Status: Acute (2) Nephrotic syndrome: Status: Acute Plan Patient with significant proteinuria, nephrotic syndrome, possible ALINA vs CKD (unknown baseline renal function). renal function remains stable recommend albumin 25grams q6h followed by 40mg lasix IVP q6h following each albumin infusion- may continue until patient is discharged, or until he is euvolemic. blood pressures suboptimal though improving with diuresis, will continue. patient will need a renal biopsy given significant proteinuria, hematuria- requested outpatient biopsy through IR next week- per IR, next available slot is on 12/04, order placed. Patient is ok for discharge from a renal standpoint. May discharge on lasix 60mg PO BID and traimterene 100mg PO daily. Discussed with Dr Huerta. Time Spent With Patient Time: Total time managing care of this patient today ____ minutes. Progress Note: Quality Stroke Does the patient have a stroke diagnosis?: No
[2024-11-21 10:39] LABS: Anion Gap 9 (12-20); Blood Urea Nitrogen 17 mg/dL (9-16); Calcium 8.2 mg/dL (8.4-10.2); Carbon Dioxide 32 mmol/L (22-29); Chloride 105 mmol/L (96-108); Creatinine Clr Calc Pharmacy 51.9; Estimated Glomerular Filt Rate 42; Potassium 3.0 mmol/L (3.3-5.1); Sodium 143 mmol/L (135-145)
[2024-11-21 11:35] LABS: Glucose, Whole Blood 183 mg/dL (60-115)
[2024-11-21 11:36] VITALS: BP 145/70; PULSE 65; RESP 17; TEMP 36.7; O2SAT 100
--- NOTE | 2024-11-21 13:19 | MHC.CM.PN ---
EMR REVIEWED, PT W/NEPHROTIC SYNDROME REMAINS ON IV LASIX INCREASED TO Q6HRS AND IV ALBUMIN ALSO INCREASED TO Q6HRS, ANTIC PT WILL DC HOME NO SERVICES ONCE MEDICALLY CLEARED.
--- NOTE | 2024-11-21 14:01 | P.DS_ITS ---
DS: Providers Provider Date of Service: 11/21/24 Date of admission: 11/19/24 13:06 Date of discharge: 11/21/24 Primary care physician: Elizabeth Wright MD Consults: 11/19/24 15:39 Consult to Nephrology Routine Consulting Provider: [facility] [place] [facility] Reason for consultation: nephrotic syndrome DS: Diagnosis Discharge Diagnosis (1) Proteinuria: Status: Acute (2) Nephrotic syndrome: Status: Acute DS: Summary Hospital Course Hospital Course: 54-year-old man with a history of diabetes mellitus type 2, HIV, hyperlipidemia, proteinuria presented to the ER with complaints of worsening lower extremity edema over the past month, admitted with ALINA, anasarca, hypertension, consistent 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 He presented with complaints of worsening lower extremity edema over the past month. He also reported some nausea and dry heaving at work yesterday. She apparently has been out of all of his medications for the past 4 months due to insurance issues. He reported pitting edema from his thighs all the way down to his feet. He denied any shortness of breath, chest pain. According to the [facility] records he does have a history of proteinuria. In the ER, creatinine 1.55, pro BNP 1004, total protein 4.8, albumin 2.1, heavy protein urea in urinalysis, elevated blood pressure readings. Venous Doppler ultrasound of lower extremities negative, chest x-ray showing no acute. Patient was given a dose of Lasix and Tylenol. He will be admitted for further management and treatment of nephrotic syndrome. Nephrotic syndrome Anasarca Prerenal/intrarenal ALINA HTN Hypertensive/diabetic/HIV nephropathy Edema noted from thighs to lower extremity; anasarcic Heavy proteinuria, albumin 2.1, total protein 4.8 Nephrology consultation placed Protein supplement added to diet, high-protein diet Patient received a combination of 25 g albumin infusions followed by IV furosemide, with significant improvement in his anasarca. NATHEN, complements, kappa light chain, protein electrophoresis, lipids ordered HIV viral load was also ordered The patient will require an outpatient renal biopsy Suspected etiology of patient's cephalopathy 2/2 diabetic nephropathy or HIV induced nephropathy/glomerulonephritis Status at Discharge Functional status at discharge: independent ambulation Overall status at discharge: patient is back to baseline Time Attestation Total time managing care of this patient today: 35 mintues. Discharge Coordination Time (in mins): 15 Quality: Safe Use of Opioids Does Pt have an Active Cancer Diagnosis on the Problem List?: No Quality: Stroke Does the patient have a stroke diagnosis?: No Physical Exam Exam: Exam: General: A&O x3, oriented to time place person and situation, comfortable, no pain Cardiac: S1, S2 auscultated with no S3/4, no MRG. Well perfused. Respiratory: Normal breath sounds auscultated throughout all lung zones, without wheezing, rales. Normal rate. GI/ : No abdominal pain on palpation, no masses or distentions. MSK: Normal ambulation without pain at bony prominences or musculature. lower extremity edema with 3+ pitting edema to the mid shins bilaterally. Evidence of lipodermatosclerosis noted to the lower extremities. Neurological: Normal neurological examination on overview, without obvious CN II-XII abnormalities. Vital Signs: Vital Signs: Last Vital Signs Temp 98.0 F 11/21/24 11:36 Pulse 65 11/21/24 11:36 Resp 17 11/21/24 11:36 BP 145/70 H 11/21/24 11:36 Pulse Ox 100 11/21/24 11:36 O2 Del Method Room Air 11/21/24 11:36 BMI result Body Mass Index 25.7 DS: Data Data Completed and Pending Labs on day of discharge: Laboratory Results - last 24 hr 11/19/24 11/19/24 11/20/24 16:44 16:45 15:48 Hold Purple Top Sodium 146 H Potassium 3.3 Chloride 114 H Carbon Dioxide 29 Anion Gap 6 L BUN 18 H Creatinine 1.46 H Estim Creat Clear Calc 60.1 Estimated GFR 50 POC Glucose Random Glucose 153 H Calcium 7.5 L Total Protein (PEP) 4.5 L Albumin (PEP) 2.3 L Gvgmw-9-Moqhanhvo 0.2 Gfyen-8-Yccbuynsm 1.0 H Ighf-0-Isccckfu 0.2 L Xmjp-5-Xyvikwhv 0.3 Gamma Globulins 0.5 L Abnorm Protein Band 1 TNP Abnorm Protein Band 2 TNP Abnorm Protein Band 3 TNP PEP Interpretation SEE NOTE Complement C3 94 Complement C4 20 HIV-1 RNA copies/mL 2050 H HIV-1 RNA logcopies/mL 3.31 H 11/20/24 11/20/24 11/21/24 16:17 20:15 07:40 Hold Purple Top Sodium Potassium Chloride Carbon Dioxide Anion Gap BUN Creatinine Estim Creat Clear Calc Estimated GFR POC Glucose 146 H 141 H 137 H Random Glucose Calcium Total Protein (PEP) Albumin (PEP) Xqzwx-9-Ynclzynuo Mwink-3-Mjmbjdzxx Sjan-7-Mcagaswl Uabe-6-Hfuzxtkd Gamma Globulins Abnorm Protein Band 1 Abnorm Protein Band 2 Abnorm Protein Band 3 PEP Interpretation Complement C3 Complement C4 HIV-1 RNA copies/mL HIV-1 RNA logcopies/mL 11/21/24 11/21/24 11/21/24 10:15 10:17 11:29 Hold Purple Top SEE NOTE Sodium 143 Potassium 3.0 L Chloride 105 Carbon Dioxide 32 H Anion Gap 9 L BUN 17 H Creatinine 1.69 H Estim Creat Clear Calc 51.9 Estimated GFR 42 POC Glucose 183 H Random Glucose 204 H Calcium 8.2 L D Total Protein (PEP) Albumin (PEP) Jdegh-1-Yuecywhzc Ulpvs-2-Rshcejxvp Fmmj-1-Qnjxssvo Ublk-4-Hbkoypuw Gamma Globulins Abnorm Protein Band 1 Abnorm Protein Band 2 Abnorm Protein Band 3 PEP Interpretation Complement C3 Complement C4 HIV-1 RNA copies/mL HIV-1 RNA logcopies/mL Discharge Plan Discharge Anticipated Discharge Date/Time: 11/21/24 14:04 Patient Disposition: Home, Self-Care Discharge Diagnosis: Nephrotic syndrome, with HTN, ALINA and anasarca, 2/2 diabetic/HIV nephropathy Referrals: Elizabeth Wright MD [Primary Care Provider, Medical] - 1 Week Discharge Medications: New amlodipine 2.5 mg Tablet 7.5 mg PO BEDTIME 30 Days Qty: 90 0RF Protocol: Hold for SBP< HOLD for SBP < : 90 triamterene 100 mg capsule 100 mg PO DAILY Qty: 30 0RF furosemide [Lasix] 40 mg tablet 60 mg PO BID 30 Days Qty: 90 0RF Continued atorvastatin 40 mg tablet 40 mg PO DAILY aspirin 81 mg tablet,delayed release (DR/EC) 81 mg PO DAILY brimonidine 0.2 % drops 1 drp ophthalmic (eye) BID omeprazole 20 mg capsule,delayed release(DR/EC) 20 mg PO DAILY@0630 timolol maleate 0.5 % drops 1 drp ophthalmic (eye) BID olmesartan 5 mg tablet 5 mg PO DAILY Jardiance 25 mg tablet 25 mg PO DAILY Ozempic 0.25 mg or 0.5 mg (2 mg/3 mL) pen injector 5 mg SUBCUT GABRIEL Dovato 50-300 mg tablet 1 tab PO DAILY 30 Days Qty: 30 0RF Discharge Orders: Discharge Order (Routine); Ordered 11/21/24 Ordered By: Graciela Salguero Stand Alone Forms: Patient Portal Discharge page Print Language: Lebanese Care Plan Goals: As above Health Concerns: As above Plan of Treatment: Follow up outpatient Nephrology within 1 week of discharge IR guided kidney biopsy planned for 12/04 Follow up with PCP within 1 week of discharge Follow up Infectious Disease for HIV management within 1 week of discharge Assessment: Hemodynamically stable, with significant improvement in anasarca with treatment with albumin and furosemide combination as directed by Nephrology. Patient has recovered back to baseline, requiring follow up treatment closely with Nephrology, Infectious diseases and PCP. No active or acute medical issues warranting continued inpatient admission
[2024-11-21 15:53] LABS: HIV RNA PCR Qn Copies 2090 copies/mL (NOT DETECTED); HIV RNA PCR Qn Log Copies 3.32 (NOT DETECTED)
[2024-11-22 16:23] LABS: Absolute CD3 Count 1734 cells/uL (840-3060); Absolute CD8 Count 731 cells/uL (180-1170); Percent CD3 Cells 75 % (57-85); Percent CD8 Cells 32 % (12-42)
[2024-11-23 22:17] LABS: Anti Nuclear Antibody Screen POSITIVE (NEGATIVE); Anti Nuclear Antibody Titer 1:80 titer
[2024-11-24 16:39] LABS: Kappa, Serum 176 mg/dL (176-443); Kappa/Lambda Ratio, Serum 2.38 (1.29-2.55); Lambda, Serum 74 mg/dL (91-240)
== END 2024-11-21 15:31 | disposition home or self-care (01) | DRG 468 ==
LOC: HO.ED 12:52 → HO.EDOVER 13:17 → HO.IMC 19:13
PROVIDERS: Internal Medicine; Internal Medicine Critical Care Medicine; Nurse Practitioner Family; Registered Nurse Emergency; Admitting Provider Nurse Practitioner Acute Care; Emergency Provider Emergency Medicine; PCP Internal Medicine; Visit Provider Hospitalist
DX: E11.21 Type 2 diabetes mellitus with diabetic nephropathy (principal); N17.9 Acute kidney failure, unspecified; Z21 Asymptomatic human immunodeficiency virus [HIV] infection status; E78.5 Hyperlipidemia, unspecified; Z20.822 Contact with and (suspected) exposure to COVID-19; K21.9 Gastro-esophageal reflux disease without esophagitis; I10 Essential (primary) hypertension; H40.9 Unspecified glaucoma; Z91.148 Patient's other noncompliance with medication regimen for other reason; Z79.82 Long term (current) use of aspirin; Z87.891 Personal history of nicotine dependence; Z79.899 Other long term (current) drug therapy
CPT/HCPCS: 36415; 71046; 76770; 80048; 80053; 80061; 81001; 82010; 82043; 82570; 82803; 82947; 83880; 83883; 84156; 84165; 84484; 85025; 85027; 85999; 86038; 86039; 86160; 86359; 86360; 87177; 87209; 87502; 87507; 87536; 87635; 93005; 93306; 93970; 99285; J0131; J1644; J1938; J2405; J3480; P9047; Q9957

== ENCOUNTER → 2024-11-19 09:55 | Outpatient (BNV) | payer OTHER, SELFPAY | PROVIDERS: Admitting Provider Nurse Practitioner Acute Care; Emergency Provider Emergency Medicine; Visit Provider Internal Medicine | DX: R53.1 Weakness (principal) | CPT/HCPCS: 93010 ==

== ENCOUNTER → 2024-11-19 12:10 | Outpatient (BNV) | payer OTHER, SELFPAY | PROVIDERS: Admitting Provider Nurse Practitioner Acute Care; Emergency Provider Emergency Medicine; Visit Provider Radiology Diagnostic Radiology | DX: R60.0 Localized edema (principal); M79.604 Pain in right leg; M79.605 Pain in left leg; R79.89 Other specified abnormal findings of blood chemistry; R53.83 Other fatigue | CPT/HCPCS: 71046; 76770; 93970 ==

== ENCOUNTER 2024-11-19 13:06 | Outpatient (BNV) | payer OTHER, SELFPAY | END 2024-11-20 12:00 | PROVIDERS: Admitting Provider Nurse Practitioner Acute Care; Emergency Provider Emergency Medicine; Visit Provider Internal Medicine | DX: I36.1 Nonrheumatic tricuspid (valve) insufficiency (principal); I77.810 Thoracic aortic ectasia | CPT/HCPCS: 93306 ==

== ENCOUNTER → 2024-11-19 13:06 | Outpatient (BNV) | payer OTHER, SELFPAY | PROVIDERS: Admitting Provider Nurse Practitioner Acute Care; Emergency Provider Emergency Medicine; Visit Provider Hospitalist | DX: R80.9 Proteinuria, unspecified (principal); N04.9 Nephrotic syndrome with unspecified morphologic changes | CPT/HCPCS: 99223; 99232; 99239 ==

== ENCOUNTER → 2024-11-19 13:06 | Outpatient (BNV) | payer OTHER, SELFPAY | PROVIDERS: Admitting Provider Nurse Practitioner Acute Care; Emergency Provider Emergency Medicine; Visit Provider Nurse Practitioner Family | DX: R80.9 Proteinuria, unspecified (principal); N17.9 Acute kidney failure, unspecified; N04.9 Nephrotic syndrome with unspecified morphologic changes | CPT/HCPCS: 99222 ==

== ENCOUNTER 2024-12-04 06:42 | Day surgery (SDC) | payer OTHER, SELFPAY ==
--- OUTSIDE RECORDS SUMMARY | 2024-11-21 13:09 | XMS_ITS | Encounter Summary ---
Author Organization [facility], Address [address] [facility] [address] [place] [address] Phone Care Team Providers Care Footwear Machinery Instructor Name Role Phone Elizabeth Wright MD Primary Care Provider Encounter Details Date Type Department Care Team (Late st Contact Info) Description 10/24/2024 Documentation Only [facility], [address] [place] [address] Sarah Jarvis [address] [place] [address] Social History Tobacco Use Types [...] on filedocumented in this encounter Care Teams Footwear Machinery Instructor Relationship Specialty Start Date End Date Elizabeth Wright MD [address] [place] [phone] PCP - General Internal Medicine 06/30/24 documented as of this encounter
--- OUTSIDE RECORDS SUMMARY | 2024-11-21 13:09 | XMS_ITS | Clinical Summary ---
Author Organization [facility], Address [address] [place] [address] Phone Care Team Providers Care Circuit Manager Name Role Phone Elizabeth Wright MD [...] Only [facility], [address] [place] [address] Matheus, Sarah 10/24/2024 Documentation Only [facility], [address] [place] [address] Matheus, Sarah 10/24/2024 Documentation Only [facility], [address] [place] [address] Matheus, Sarah 10/24/2024 Documentation Only [facility], [address] [place] [address] Matheus, Sarah 10/24/2024 Documentation Only [facility] [address] [place] [address] Matheus, Sarah 10/24/2024 Documentation Only [facility] [address] [place] [address] Matheus, Sarah 10/24/2024 Documentation Only [facility], [address] [place] [address] Matheus, Sarah from Last 3 Months Immunizations [...] Exam 10/24/2024 Insurance Medicaid [place] Care Teams Circuit Manager Relationship Specialty Start Date End Date Elizabeth Wright MD [address] [place] [id number] PCP - General Internal Medicine 06/30/24
--- OUTSIDE RECORDS SUMMARY | 2024-11-21 13:09 | XMS_ITS | Encounter Summary ---
Author Organization [facility], Address [address] [facility] [address] [place] [address] Phone Care Team Providers Care Bosom Presser Name Role Phone Elizabeth Wright MD Primary Care Provider Encounter Details Date Type Department Care Team (Late st Contact Info) Description 10/24/2024 Documentation Only [facility], [address] [place] [address] Sarah Jarvis [address] [place] [address] Social History Tobacco Use Types [...] on filedocumented in this encounter Care Teams Bosom Presser Relationship Specialty Start Date End Date Elizabeth Wright MD [address] [place] [phone] PCP - General Internal Medicine 06/30/24 documented as of this encounter
--- OUTSIDE RECORDS SUMMARY | 2024-11-21 13:09 | XMS_ITS | Encounter Summary ---
Author Organization [facility], Address [address] [facility] [address] [place] [address] Phone Care Team Providers Care Quantitative Associate Name Role Phone Elizabeth Wright MD Primary Care Provider Encounter Details Date Type Department Care Team (Late st Contact Info) Description 10/24/2024 Documentation Only [facility], [address] [place] [address] Sarah Jarvis [address] [place] [address] Social History Tobacco Use Types [...] on filedocumented in this encounter Care Teams Quantitative Associate Relationship Specialty Start Date End Date Elizabeth Wright MD [address] [place] [phone] PCP - General Internal Medicine 06/30/24 documented as of this encounter
--- OUTSIDE RECORDS SUMMARY | 2024-11-21 13:09 | XMS_ITS | Encounter Summary ---
Author Organization [facility], Address [address] [place] [address] Phone Care Team Providers Care Industrial Maintenance Technician Name Role Phone Elizabeth Wright MD Primary Care Provider Encounter Details Date Type Department Care Team (Late st Contact Info) Description 06/30/2024 Documentation Only [facility], [address] [place] [address] Karen [place], [place] [address] [place] [address] Social History Tobacco Use Types [...] on filedocumented in this encounter Care Teams Industrial Maintenance Technician Relationship Specialty Start Date End Date Elizabeth Wright MD [address] [place] [phone] PCP - General Internal Medicine 06/30/24 documented as of this encounter
--- OUTSIDE RECORDS SUMMARY | 2024-11-21 13:09 | XMS_ITS | Encounter Summary ---
Author Organization [facility], Address [address] [place] [address] Phone Care Team Providers Care Dewatering Filtering Supervisor Name Role Phone Elizabeth Wright MD Primary Care Provider Encounter Details Date Type Department Care Team (Late st Contact Info) Description 06/30/2024 Documentation Only [facility], [address] [place] [address] [place], [place] [address] [place] [address] Social History Tobacco Use Types [...] on filedocumented in this encounter Care Teams Dewatering Filtering Supervisor Relationship Specialty Start Date End Date Elizabeth Wright MD [address] [place] [phone] PCP - General Internal Medicine 06/30/24 documented as of this encounter
--- OUTSIDE RECORDS SUMMARY | 2024-11-21 13:09 | XMS_ITS | Encounter Summary ---
Author Organization [facility], Address [address] [facility] [address] [place] [address] Phone Care Team Providers Care Hospital Product Specialist Name Role Phone Elizabeth Wright MD Primary Care Provider Encounter Details Date Type Department Care Team (Late st Contact Info) Description 10/24/2024 Documentation Only [facility], [address] [place] [address] Sarah Jarvis [address] [place] [address] Social History Tobacco Use Types [...] on filedocumented in this encounter Care Teams Hospital Product Specialist Relationship Specialty Start Date End Date Elizabeth Wright MD [address] [place] [id number] PCP - General Internal Medicine 06/30/24 documented as of this encounter
--- OUTSIDE RECORDS SUMMARY | 2024-11-21 13:09 | XMS_ITS | Encounter Summary ---
Author Organization [facility], Address [address] [facility] [address] [place] [address] Phone Care Team Providers Care Bilingual Trainer Name Role Phone Elizabeth Wright MD Primary Care Provider [phone] Encounter Details Date Type Department Care Team (Late st Contact Info) Description 10/24/2024 Documentation Only [facility], [address] [place] [address] Sarah Jarvis [address] [place] [address] Social History Tobacco Use Types [...] on filedocumented in this encounter Care Teams Bilingual Trainer Relationship Specialty Start Date End Date Elizabeth Wright MD [address] [place] [id number] PCP - General Internal Medicine 06/30/24 documented as of this encounter
--- OUTSIDE RECORDS SUMMARY | 2024-11-21 13:09 | XMS_ITS | Encounter Summary ---
Author Organization [facility], Address [address] [facility] [address] [place] [address] Phone Care Team Providers Care Supervisory It Specialist Name Role Phone Elizabeth Wright MD Primary Care Provider Encounter Details Date Type Department Care Team (Late st Contact Info) Description 10/24/2024 Documentation Only [facility], [address] [place] [address] Sarah Jarvis [address] [place] [address] Social History Tobacco Use Types [...] on filedocumented in this encounter Care Teams Supervisory It Specialist Relationship Specialty Start Date End Date Elizabeth Wright MD [address] [place] [phone] PCP - General Internal Medicine 06/30/24 documented as of this encounter
--- OUTSIDE RECORDS SUMMARY | 2024-11-21 13:09 | XMS_ITS | Encounter Summary ---
Author Organization [facility], Address [address] [facility] [address] [place] [address] Phone Care Team Providers Care Food Service Steward Name Role Phone Elizabeth Wright MD Primary Care Provider Encounter Details Date Type Department Care Team (Late st Contact Info) Description 10/24/2024 Documentation Only [facility], [address] [place] [address] Sarah Jarvis [address] [place] [address] Social History Tobacco Use Types [...] on filedocumented in this encounter Care Teams Food Service Steward Relationship Specialty Start Date End Date Elizabeth Wright MD [address] [place] [phone] PCP - General Internal Medicine 06/30/24 documented as of this encounter
--- OUTSIDE RECORDS SUMMARY | 2024-11-21 13:09 | XMS_ITS | Encounter Summary ---
Author Organization [facility], Address [address] [place] [address] Phone Care Team Providers Care Counter Clerk [employer] Name Role Phone Elizabeth Wright MD Primary Care Provider Encounter Details Date Type Department Care Team (Late st Contact Info) Description 06/30/2024 Documentation Only [facility], [address] [place] [address] [place], [place] [address] [place] [address] Social History Tobacco Use Types [...] on filedocumented in this encounter Care Teams [employer] Relationship Specialty Start Date End Date Elizabeth Wright MD [address] [place] [id number] PCP - General Internal Medicine 06/30/24 documented as of this encounter
[2024-12-04] VITALS (15 sets, daily range): BP systolic 101–152; BP diastolic 63–90; PULSE 65–78; RESP 9–18; TEMP 36.1–36.7; O2SAT 99–100; BMI 23.1
--- NOTE | ~2024-12-04 | CT_ITS ---
PROCEDURE: CT GUIDED BIOPSY, KIDNEY CLINICAL INFORMATION: Nephrotic syndrome with unspecified morphologically changes. COMPARISON: Ultrasound retroperitoneum 11/19/2024 TECHNIQUE: Following explaining CT fluoroscopy guided biopsy of renal core biopsy procedure, benefits and risk, a written consent was obtained. Patient was placed prone on CT fluoroscopy table and preliminary CT imaging was obtained through the posterior abdomen. An axial slice was selected and markers were placed along the posterior abdomen and repeat CT imaging performed. An optimal marker was selected placed over the left posterior abdomen and marked on the skin. The marked skin site was cleaned and draped in usual sterile manner. 1% lidocaine was injected puncture site. Through a small skin incision a 18-gauge guide needle was advanced from the skin incision into the lower pole renal cortex. Coaxially a second 18-gauge needle was advanced and it 3 pass core biopsy lower pole left kidney was obtained. Postbiopsy micronodules 4 was injected through the guide needle to achieve hemostasis. Postprocedure repeat imaging was obtained. Following removal of the guide needle complete hemostasis was achieved at puncture site. Patient tolerated procedure extremely well. Conscious sedation was utilized during exam and patient monitored by IR nursing and IR radiologist. DLP: 261. This CT examination was performed using dose optimization techniques as appropriate, variously including the following: *Automated exposure control *Adjustment of mA and/or kV according to patient size (this includes techniques or standardized protocols for targeted exams where dose is matched to indication/reason for exam; i.e. extremities or head) *Use of iterative reconstruction technique FINDINGS: [address] imaging visualized liver, spleen appears unremarkable. Adrenal glands are symmetrical. There is a 4.6 cm cyst upper pole left kidney and a nonobstructive 3 mm radiopaque calculi upper pole left kidney. There is no hydronephrosis. Successful CT fluoroscopy guided left renal lower pole core biopsy was performed x3. Post biopsy repeat CT imaging revealed minimal gas and hematoma. CT/CT biopsy renal LT IMPRESSION: Small cyst and a nonobstructive calculi upper pole left kidney. Successful CT fluoroscopy guided left renal lower pole core biopsy performed without immediate complications. Electronically signed by: Jeyson Aly MD 12/11/2024 02:21 PM EDT
--- NOTE | 2024-12-04 07:33 | PC.NURSE ---
poc 456. asymptomatic
[2024-12-04 07:36] LABS: Glucose, Whole Blood 456 mg/dL (60-115)
--- NOTE | 2024-12-04 07:43 | PC.NURSE ---
ORDERING MD IS TAYO DONIS-MARS, [employer]-BC NO IN TIGER CONNE[employer]. TIGER CONNECTED MD GONZALEZ AND MD GOVEA WITH RESULTS
[2024-12-04 07:45] LABS: INTERNATIONAL NORM RATIO 0.8 (0.9-1.1); Prothrombin Time 9.5 SEC (10.9-12.4)
--- NOTE | 2024-12-04 07:57 | PC.NURSE ---
MD GOVEA BY BEDSIDE AWARE OF BLOOD SUGAR. AWAITING FOR NEW ORDER
--- NOTE | 2024-12-04 08:26 | PC.NURSE ---
Pt's BG POC in pre-op was 456; Dr Aly made aware; 4 units IVP Reg insulin gv in procedure room at this time per orders
[2024-12-04 09:05] LABS: Glucose, Whole Blood 254 mg/dL (60-115)
--- NOTE | 2024-12-04 09:14 | PC.NURSE ---
Repeat BG POC 254; Dr Aly and PLASTICS FITTER made aware
--- NOTE | 2024-12-04 09:55 | PC.NURSE ---
pt BG [address] Aly contacted, pt cleared for discharge with no further test needed per Dr Aly
== END 2024-12-04 11:12 | disposition home or self-care (01) ==
PROVIDERS: Radiology Diagnostic Radiology; PCP Internal Medicine; Visit Provider Nurse Practitioner Family
DX: N04.9 Nephrotic syndrome with unspecified morphologic changes (principal); R80.9 Proteinuria, unspecified; E11.21 Type 2 diabetes mellitus with diabetic nephropathy
CPT/HCPCS: 36415; 50200; 77012; 82947; 85610; 86850; 86900; 86901; 88300; 88305; 88313; 88346; 88348; 88350; J2003; J2250; J3010

== ENCOUNTER → 2024-12-04 08:07 | Outpatient (BNV) | payer OTHER, SELFPAY | PROVIDERS: PCP Internal Medicine; Visit Provider Radiology Diagnostic Radiology | DX: N20.0 Calculus of kidney (principal); N28.1 Cyst of kidney, acquired | CPT/HCPCS: 50200; 77012 ==